=== PATIENT | female | born 1955 | race Caucasian/White ===

== ENCOUNTER → 2020-05-27 13:42 | Outpatient (BNVA) | payer MEDICARE, SELFPAY | PROVIDERS: PCP Internal Medicine; Referring Provider Internal Medicine; Visit Provider Hospitalist | DX: J45.909 Unspecified asthma, uncomplicated (principal); G47.33 Obstructive sleep apnea (adult) (pediatric); D80.2 Selective deficiency of immunoglobulin A [IgA]; Z85.72 Personal history of non-Hodgkin lymphomas; Z99.89 Dependence on other enabling machines and devices | CPT/HCPCS: 99212 ==

== ENCOUNTER → 2020-06-10 14:01 | Outpatient (BNVA) | payer MEDICARE, SELFPAY | PROVIDERS: PCP Internal Medicine; Visit Provider Hospitalist | DX: G47.33 Obstructive sleep apnea (adult) (pediatric) (principal); J45.909 Unspecified asthma, uncomplicated; D80.2 Selective deficiency of immunoglobulin A [IgA]; C85.90 Non-Hodgkin lymphoma, unspecified, unspecified site; Z99.89 Dependence on other enabling machines and devices | CPT/HCPCS: 99212 ==

== ENCOUNTER → 2020-07-23 12:47 | Outpatient (REF) | payer MEDICARE, SELFPAY | LOC: HO.SL 12:47 | PROVIDERS: Visit Provider Hospitalist | DX: G47.33 Obstructive sleep apnea (adult) (pediatric) (principal); Z99.89 Dependence on other enabling machines and devices | CPT/HCPCS: 95806 ==

== ENCOUNTER → 2020-08-08 14:20 | Outpatient (BNVA) | payer MEDICARE, SELFPAY | PROVIDERS: PCP Internal Medicine; Visit Provider Hospitalist | DX: J45.909 Unspecified asthma, uncomplicated (principal); D80.2 Selective deficiency of immunoglobulin A [IgA]; G47.33 Obstructive sleep apnea (adult) (pediatric); Z99.89 Dependence on other enabling machines and devices | CPT/HCPCS: 99212 ==

== ENCOUNTER → 2020-11-06 15:10 | Outpatient (BNVA) | payer MEDICARE, SELFPAY | PROVIDERS: PCP Internal Medicine; Visit Provider Hospitalist | DX: D80.2 Selective deficiency of immunoglobulin A [IgA] (principal); J45.40 Moderate persistent asthma, uncomplicated; G47.33 Obstructive sleep apnea (adult) (pediatric); Z99.89 Dependence on other enabling machines and devices | CPT/HCPCS: 99212 ==

== ENCOUNTER → 2021-04-27 13:49 | Outpatient (BNVA) | payer MEDICARE, SELFPAY | PROVIDERS: PCP Internal Medicine; Visit Provider Hospitalist | DX: J45.40 Moderate persistent asthma, uncomplicated (principal); G47.33 Obstructive sleep apnea (adult) (pediatric); D80.2 Selective deficiency of immunoglobulin A [IgA]; Z99.89 Dependence on other enabling machines and devices | CPT/HCPCS: 99212 ==

== ENCOUNTER → 2021-06-25 14:16 | Outpatient (BNVA) | payer MEDICARE, SELFPAY | PROVIDERS: PCP Internal Medicine; Visit Provider Hospitalist | DX: G47.33 Obstructive sleep apnea (adult) (pediatric) (principal); J45.40 Moderate persistent asthma, uncomplicated; D80.2 Selective deficiency of immunoglobulin A [IgA]; Z99.89 Dependence on other enabling machines and devices | CPT/HCPCS: 99212 ==

== ENCOUNTER → 2021-08-05 09:42 | Outpatient (REF) | payer MEDICARE, SELFPAY | LOC: HO.SL 09:42 | PROVIDERS: Visit Provider Hospitalist | DX: G47.33 Obstructive sleep apnea (adult) (pediatric) (principal); Z99.89 Dependence on other enabling machines and devices | CPT/HCPCS: 95810 ==

== ENCOUNTER → 2021-10-02 14:53 | Outpatient (BNVA) | payer MEDICARE, SELFPAY | PROVIDERS: PCP Internal Medicine; Visit Provider Hospitalist | DX: J45.40 Moderate persistent asthma, uncomplicated (principal); G47.33 Obstructive sleep apnea (adult) (pediatric); D80.2 Selective deficiency of immunoglobulin A [IgA]; Z79.899 Other long term (current) drug therapy; Z99.89 Dependence on other enabling machines and devices | CPT/HCPCS: 99212 ==

== ENCOUNTER → 2022-01-29 14:52 | Outpatient (BNVA) | payer OTHER, SELFPAY | PROVIDERS: PCP Internal Medicine; Visit Provider Hospitalist | DX: J45.40 Moderate persistent asthma, uncomplicated (principal); D80.2 Selective deficiency of immunoglobulin A [IgA]; G47.33 Obstructive sleep apnea (adult) (pediatric); Z99.89 Dependence on other enabling machines and devices | CPT/HCPCS: 99212 ==

== ENCOUNTER → 2022-08-02 15:34 | Outpatient (BNVA) | payer OTHER, SELFPAY | PROVIDERS: PCP Internal Medicine; Visit Provider Hospitalist | DX: J45.40 Moderate persistent asthma, uncomplicated (principal); D80.2 Selective deficiency of immunoglobulin A [IgA]; G47.33 Obstructive sleep apnea (adult) (pediatric); Z99.89 Dependence on other enabling machines and devices | CPT/HCPCS: 99212 ==

== ENCOUNTER → 2022-11-01 15:42 | Outpatient (BNVA) | payer OTHER, SELFPAY | PROVIDERS: PCP Internal Medicine; Visit Provider Hospitalist | DX: J45.40 Moderate persistent asthma, uncomplicated (principal); J40 Bronchitis, not specified as acute or chronic; G47.33 Obstructive sleep apnea (adult) (pediatric); D80.2 Selective deficiency of immunoglobulin A [IgA]; Z99.89 Dependence on other enabling machines and devices | CPT/HCPCS: 99212 ==

== ENCOUNTER → 2022-11-29 16:02 | Outpatient (REF) | payer OTHER, SELFPAY | LOC: HO.SL 16:02 | PROVIDERS: PCP Internal Medicine; Visit Provider Hospitalist | DX: G47.33 Obstructive sleep apnea (adult) (pediatric) (principal); Z99.89 Dependence on other enabling machines and devices | CPT/HCPCS: 95806 ==

== ENCOUNTER 2023-02-07 14:41 | Outpatient (AMB) | payer OTHER, SELFPAY ==
[2023-02-07 14:47] VITALS: PULSE 89; O2SAT 98; BMI 30.9
--- NOTE | 2023-02-07 14:47 | A.OFFVIS_ITS ---
Intake Vital Signs 02/07/23 14:47 Height 5 ft 1 in Weight 163 lb 5.8 oz BMI 30.9 Pulse 89 Pulse Source Pulse Oximeter Pulse Oximetry (%) 98 Oxygen Delivery Method Room Air Intake Visit Reasons: Asthma/SHAHLA Junior Accountant Required: No Allergies Penicillin Allergy (Severe, Uncoded 02/07/23 14:48) Dizziness HPI HPI Comments History of Present Illness Details The patient is a 67-year-old woman known history of lymphoma in remission in addition to pulmonary nodules, asthma and IgA deficiancy. She did follow-up with thoracic surgery at some point at [place] and underwent a wedge resection. The biopsy was consistent with hypersensitivity pneumonitis. Her hypersensitivity panel at the time was also abnormal. She was on respiratory inhalers and had been stable for some time. However then she stop taking the medication she was lost to follow-up. The patient started developing worsening shortness of breath and wheezing back in the winter of 2019. Positive sick contacts at home. She went to the [facility] ED where she had his flu swab and also a RSV swab that was negative. She was wondering if she could have the COVID-19 infection at the time. She had a lot of the similar symptoms. Now she has recovered she has been using Flovent Diskus inhaler with good effect. In addition to that the patient had a pulmonary nodule noted on the CAT scan February of 2019 and subsequently had a repeat CT scan of the chest in June 2019 demonstrating interval resolution of the left lower lobe nodular density which is reassuring and likely inflammatory. 08/02/2022 the patient is here for a pulmonary follow-up visit. The patient complains of some chest tightness. Lwyu-vo-pnlbbjqa severity. She has not been using her maintenance inhalers. Prior she had Breo and ran out. She does not have any more medication at home. she is having difficulty with the powder inhalers anyway. Therefore I will resend Symbicort which she had in the past and she tolerated. Hopefully is covered. If not will send a different inhaled HFA combination inhaler. The patient also if worsens can start prednisone. At this point she does not need it. She is also struggling with CPAP. The [employer] called interval going to take the machine away because she has not been using it. However, they have not done so. She would like to use it. She does not know had a set up her current mask and does not uncomfortable. I did have an N30 mask available that she can try. She understands that she needs to use her machine. If the machine is taking away and she needs to go back on CPAP she is going to have to get a repeat sleep study in order to activate her again. Meantime she can see about getting used to the new mask and continue using her machine. She is also complaining of other multiple complaints including headaches. She has needs to follow-up with primary care doctor about that. She is thinking about seeing a neurologist that she has seen in the past. 11/01/2022 the patient is here for pulmonary follow-up visit. She has been having increased episodes of chest congestion and bronchitis. She did take some doxycycline recently with some improvement. However she ran out and she needs another script. 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 In addition to that she continues with her Symbicort inhaler with her response. She also has a nebulizer that she can use. She also has a CPAP machine. Unfortunately she had a hard time tolerating the machine. Therefore now she needs to return. Will go ahead and repeat the sleep study in order for her to be reactivated in order for her to continue getting supplies. She continues to complain of daytime drowsiness with EPWORTH OF 04/03. 02/07/2023 the patient is here for pulmonary follow-up visit. Since we last spoke she became sick sometime in November with worsening bronchitis symptoms. She also complained of chest tightness. She struggled for some time. She uses her nebulizer several times a day. She was started on another course of antibiotics with only partial resolution of symptoms. Ultimately she follow-up with her oncologist where she had a CT scan of the chest. It was done at [facility]. I did request a copy. It appears that she has areas of nodular ground-glass opacities measuring between 8-10 mm in size. Also evidence of bronchiolitis. This appears to be new findings. In the meantime nose no evidence of any recurrence of her blood dyscrasia. The patient felt better but then started developing substernal chest discomfort. the patient did go to the ER to have that further evaluated. no significant findings noted on that evaluation. The patient was discharged in clinically her chest discomfort has been subsiding. Currently she does not have a. She also continues to have daytime drowsiness. She has been struggling with CPAP. The CPAP therapy does help her significantly. It is affecting beneficial. Although she still having hard time with a mask fitting. I did have an F 30 I mass available. I did provide her with 1 in order for her to continue using her CPAP. In the meantime her recent home sleep study was not effective demonstrating her underlying sleep apnea. She continues to have an elevated [place] score she does need to get activated with [employer]. Therefore, I will request a in-lab sleep study at this time. The patient will return after her in-lab sleep study and also will need a CT scan of the chest in 3 months to follow up with the nodular densities measuring 8-10 mm in size. [facility] Medical History (Updated 02/07/23 @ 16:35 by Jesse Guzmán MD) Asthma Bronchitis IgA deficiency Lymphoma SHAHLA on CPAP Pulmonary nodules Social History (Updated 04/27/21 @ 14:00 by SARA Mike) Patient Tobacco Use Status: Never used Tobacco Review of Systems Const Reports daytime sleepiness, Reports headache(s), Denies night sweats and Reports snoring ENT Denies change in voice, Reports dry mouth, Reports headache(s), Denies lip swelling, Denies mouth pain, Reports nasal congestion, Reports nasal discharge and Denies tongue swelling Card Reports chest pain and Reports dyspnea on exertion Resp Reports cough, Reports dyspnea on exertion, Reports snoring and Reports wheezing GI Denies abdominal pain Musc Denies no additional complaints Neuro Denies Neuro-related abnormal movements and Reports headache(s) Psych Denies no additional complaints Tucker/Lymph Denies easy bleeding and Denies lymphadenopathy Aller/Immun Denies lip swelling, Denies tongue swelling and Reports wheezing Physical Exam Vital Signs: Last Vital Signs Pulse 89 02/07/23 14:47 Pulse Ox 98 02/07/23 14:47 Oxygen Delivery Method Room Air 02/07/23 14:47 BMI result Body Mass Index 30.9 Const General: alert Neck Neck: Yes normal visual inspection, Yes full ROM and Yes no lymphadenopathy Chest Chest palpation & inspection: normal inspection of the chest Resp Auscultation: no wheezes and diminished lung sounds Cardio Rate: regular rate Rhythm: regular rhythm Heart sounds: S1 normal heart sound present, S2 normal heart sound present and Murmur heart sound present GI Palpation (GI): Soft to palpation and nontender Auscultation: normal bowel sounds Skin General skin exam: rashes and/or lesions noted Extrem General: Yes no clubbing, cyanosis or edema Assessment & Plan Assessment & Plan (1) Asthma: Code(s): J45.909 - Unspecified asthma, uncomplicated Qualifiers: Asthma complication type: uncomplicated Asthma persistence: persistent Asthma severity: moderate Qualified Code(s): J45.40 - Moderate persistent asthma, uncomplicated (2) IgA deficiency: Code(s): D80.2 - Selective deficiency of immunoglobulin A [IgA] (3) SHAHLA on CPAP: Code(s): G47.33 - Obstructive sleep apnea (adult) (pediatric); Z99.89 - Dependence on other enabling machines and devices (4) Bronchitis: Code(s): J40 - Bronchitis, not specified as acute or chronic (5) Pulmonary nodules: Code(s): R91.8 - Other nonspecific abnormal finding of lung field Plan repeat CT chest in 3 months in lab PSG (home sleep study was not effective) provided F30i small mask for her to use continue Symbicort start Azithromycin MWF short-acting beta agonist as needed F/U 3-4 months Orders: Orders RT PSG in-lab sleep study Today G47.33 - Obstructive sleep apnea (adult) (pediatric), Z99.89 - Dependence on other enabling machines and devices CT chest wo IV con 3 Months R91.8 - Other nonspecific abnormal finding of lung field Medications: New azithromycin Take 1 tablet on Tuesday/Tuesday/Tuesday 250 mg PO 3XW 28 days 12 tabs 6RF K21.9 - Gastro-esophageal reflux disease without esophagitis Coding Level of Care Code Est Pt Level 4 (29038) Diagnoses Asthma J45.40 Asthma complication type: uncomplicated Asthma persistence: persistent Asthma severity: moderate IgA deficiency D80.2 SHAHLA on CPAP G47.33; Z99.89 Bronchitis J40 Pulmonary nodules R91.8 Time Spent (min) 19
== END 2023-02-07 15:13 | disposition home or self-care (01) ==
PROVIDERS: PCP Internal Medicine; Visit Provider Hospitalist
DX: J45.40 Moderate persistent asthma, uncomplicated (principal); D80.2 Selective deficiency of immunoglobulin A [IgA]; G47.33 Obstructive sleep apnea (adult) (pediatric); Z99.89 Dependence on other enabling machines and devices; J40 Bronchitis, not specified as acute or chronic; R91.8 Other nonspecific abnormal finding of lung field
CPT/HCPCS: 99214

== ENCOUNTER → 2023-02-07 14:41 | Outpatient (BNVA) | payer OTHER, SELFPAY | PROVIDERS: Visit Provider Hospitalist | DX: J45.40 Moderate persistent asthma, uncomplicated (principal); J40 Bronchitis, not specified as acute or chronic; R91.8 Other nonspecific abnormal finding of lung field; D80.2 Selective deficiency of immunoglobulin A [IgA]; G47.33 Obstructive sleep apnea (adult) (pediatric); Z99.89 Dependence on other enabling machines and devices | CPT/HCPCS: 99212 ==

== ENCOUNTER → 2023-03-09 19:30 | Outpatient (REF) | payer OTHER, SELFPAY | LOC: HO.SL 19:30 | PROVIDERS: PCP Internal Medicine; Visit Provider Hospitalist | DX: G47.33 Obstructive sleep apnea (adult) (pediatric) (principal); Z99.89 Dependence on other enabling machines and devices | CPT/HCPCS: 95810 ==

== ENCOUNTER → 2023-03-09 22:04 | Outpatient (BNV) | payer OTHER, SELFPAY | PROVIDERS: PCP Internal Medicine; Visit Provider Psychiatry & Neurology Neurology | DX: G47.33 Obstructive sleep apnea (adult) (pediatric) (principal) | CPT/HCPCS: 95810 ==

== ENCOUNTER 2023-06-10 11:33 | Outpatient (AMB) | payer OTHER, SELFPAY ==
[2023-06-10 11:37] VITALS: BP 110/70; PULSE 86; O2SAT 98; BMI 28.3
--- NOTE | 2023-06-10 11:37 | A.OFFVIS_ITS ---
Intake Vital Signs 06/10/23 11:37 Height 5 ft 1 in Weight 150 lb BMI 28.3 BP 110/70 Blood Pressure Location Lt brachial Position Sitting Pulse 86 Pulse Source Pulse Oximeter Pulse Oximetry (%) 98 Oxygen Delivery Method Room Air Intake Visit Reasons: Asthma/SHAHLA Intake Note: pt is here for follow up and states her breathing is not good, and has a lot of issues going on Allergies Penicillin Allergy (Severe, Uncoded 06/10/23 11:40) Dizziness HPI HPI Comments History of Present Illness Details The patient is a 68-year-old woman known history of lymphoma in remission in addition to pulmonary nodules, asthma and IgA deficiancy. She did follow-up with thoracic surgery at some point at [facility] and underwent a wedge resection. The biopsy was consistent with hypersensitivity pneumonitis. Her hypersensitivity panel at the time was also abnormal. She was on respiratory inhalers and had been stable for some time. However then she stop taking the medication she was lost to follow-up. The patient started developing worsening shortness of breath and wheezing back in the winter of 2019. Positive sick contacts at home. She went to the [facility] ED where she had his flu swab and also a RSV swab that was negative. She was wondering if she could have the COVID-19 infection at the time. She had a lot of the similar symptoms. Now she has recovered she has been using Flovent Diskus inhaler with good effect. In addition to that the patient had a pulmonary nodule noted on the CAT scan February of 2019 and subsequently had a repeat CT scan of the chest in June 2019 d emonstrating interval resolution of the left lower lobe nodular density which is reassuring and likely inflammatory. 08/02/2022 the patient is here for a pulmonary follow-up visit. The patient complains of some chest tightness. [id number]-damaanql severity. She has not been using her maintenance inhalers. Prior she had Breo and ran out. She does not have any more medication at home. she is having difficulty with the powder inhalers anyway. Therefore I will resend Symbicort which she had in the past and she tolerated. Hopefully is covered. If not will send a different inhaled HFA combination inhaler. The patient also if worsens can start prednisone. At this point she does not need it. She is also struggling with CPAP. The [employer] called interval going to take the machine away because she has not been using it. However, they have not done so. She would like to use it. She does not know had a set up her current mask and does not uncomfortable. I did have an N30 mask available that she can try. She understands that she needs to use her machine. If the machine is taking away and she needs to go back on CPAP she is going to have to get a repeat sleep study in order to activate her again. Meantime she can see about getting used to the new mask and continue using her machine. She is also complaining of other multiple complaints including headaches. She has needs to follow-up with primary care doctor about that. She is thinking about seeing a neurologist that she has seen in the past. 11/01/2022 the patient is here for pulmonary follow-up visit. She has been having increased episodes of chest congestion and bronchitis. She did take some doxycycline recently with some improvement. However she ran out and she needs another script. 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 In addition to that she continues with her Symbicort inhaler with her response. She also has a nebulizer that she can use. She also has a CPAP machine. Unfortunately she had a hard time tolerating the machine. Therefore now she needs to return. Will go ahead and repeat the sleep study in order for her to be reactivated in order for her to continue getting supplies. She continues to complain of daytime drowsiness with EPWORTH OF 04/03. 02/07/2023 the patient is here for pulmonary follow-up visit. Since we last spoke she became sick sometime in November with worsening bronchitis symptoms. She also complained of chest tightness. She struggled for some time. She uses her nebulizer several times a day. She was started on another course of antibiotics with only partial resolution of symptoms. Ultimately she follow-up with her oncologist where she had a CT scan of the chest. It was done at [facility]. I did request a copy. It appears that she has areas of nodular ground-glass opacities measuring between 8-10 mm in size. Also evidence of bronchiolitis. This appears to be new findings. In the meantime nose no evidence of any recurrence of her blood dyscrasia. The patient felt better but then started developing substernal chest discomfort. the patient did go to the ER to have that further evaluated. no significant findings noted on that evaluation. The patient was discharged in clinically her chest discomfort has been subsiding. Currently she does not have a. She also continues to have daytime drowsiness. She has been struggling with CPAP. The CPAP therapy does help her significantly. It is affecting beneficial. Although she still having hard time with a mask fitting. I did have an F 30 I mass available. I did provide her with 1 in order for her to continue using her CPAP. In the meantime her recent home sleep study was not effective demonstrating her underlying sleep apnea. She continues to have an elevated [place] score she does need to get activated with [employer]. Therefore, I will request a in-lab sleep study at this time. The patient will return after her in-lab sleep study and also will need a CT scan of the chest in 3 months to follow up with the nodular densities measuring 8-10 mm in size. 06/10/2021 the patient is here for a pulmonary follow-up visit. She has been complaining of severe abdominal discomfort and is being evaluated for this at this time. From a respiratory status the patient continues use her medications with good effect. Denies any coughing or wheezing or chest tightness. She continues have significant daytime drowsiness. Her [place] score is elevated 10/24. She did undergo an in-lab study that we we did tommy reynoso. It appears that she does not have any evidence of sleep apnea this time and goes along with her home sleep study that demonstrated the same findings. Her major issue based on the studies is that she has fragmented sleep, waking up frequently during the night. Therefore, will start her on a sleep aid to try to help her with her sleep and see if we can provide better sleep hygiene. Will start the patient on gabapentin specially since he is having significant pain hopefully this also helps upsizing of the discomfort. We can also strides trazodone if she does not tolerate the gabapentin the goal will be to provide better quality sleep without the uses CPAP. If she continues to be symptomatic even after a sleep aid will can consider repeating a sleep study in future from a pulmonary nodule standpoint the patient did have imaging studies at [facility] will request the imaging at this time. [facility] Medical History (Updated 06/12/23 @ 20:30 by Jesse Guzmán MD) Insomnia Pulmonary nodules Bronchitis Lymphoma IgA deficiency Asthma SHAHLA on CPAP Social History Patient Tobacco Use Status: Never used Tobacco Review of Systems Const Reports daytime sleepiness, Reports headache(s), Denies night sweats and Reports snoring ENT Denies change in voice, Reports dry mouth, Reports headache(s), Denies lip swelling, Denies mouth pain, Reports nasal congestion, Reports nasal discharge and Denies tongue swelling Card Reports chest pain and Denies dyspnea on exertion Resp Reports cough, Denies dyspnea on exertion, Reports snoring and Denies wheezing GI Reports abdominal pain Musc Denies no additional complaints Neuro Denies Neuro-related abnormal movements and Reports headache(s) Psych Denies no additional complaints Tucker/Lymph Denies easy bleeding and Denies lymphadenopathy Aller/Immun Denies lip swelling, Denies tongue swelling and Denies wheezing Physical Exam Vital Signs: Last Vital Signs Pulse 86 06/10/23 11:37 BP 110/70 06/10/23 11:37 Pulse Ox 98 06/10/23 11:37 Oxygen Delivery Method Room Air 06/10/23 11:37 BMI result Body Mass Index 28.3 Const General: alert Neck Neck: Yes normal visual inspection, Yes full ROM and Yes no lymphadenopathy Chest Chest palpation & inspection: normal inspection of the chest Resp Auscultation: no wheezes and diminished lung sounds Cardio Rate: regular rate Rhythm: regular rhythm Heart sounds: S1 normal heart sound present, S2 normal heart sound present and Murmur heart sound present GI Palpation (GI): Soft to palpation and nontender Auscultation: normal bowel sounds Skin General skin exam: rashes and/or lesions noted Extrem General: Yes no clubbing, cyanosis or edema Assessment & Plan Assessment & Plan (1) Asthma: Code(s): J45.909 - Unspecified asthma, uncomplicated Qualifiers: Asthma severity: moderate Asthma persistence: persistent Asthma complication type: uncomplicated Qualified Code(s): J45.40 - Moderate persistent asthma, uncomplicated (2) IgA deficiency: Code(s): D80.2 - Selective deficiency of immunoglobulin A [IgA] (3) SHAHLA on CPAP: Comment: no sleep apnea on her recent in lab PSG Code(s): G47.33 - Obstructive sleep apnea (adult) (pediatric); Z99.89 - Dependence on other enabling machines and devices (4) Pulmonary nodules: Code(s): R91.8 - Other nonspecific abnormal finding of lung field (5) Insomnia: Code(s): G47.00 - Insomnia, unspecified Qualifiers: Insomnia type: primary Qualified Code(s): F51.01 - Primary insomnia Plan start Gabapentin 300mg QHS stop APAP therapy based on her recent sleep study continue Symbicort stopped Azithromycin MWF short-acting beta agonist as needed F/U 3-4 months Medications: New gabapentin 300 mg PO BEDTIME 30 days 30 caps 3RF Coding Level of Care Code Est Pt Level 4 (71841) Diagnoses Moderate persistent asthma without complication J45.40 Asthma severity: moderate Asthma persistence: persistent Asthma complication type: uncomplicated IgA deficiency D80.2 SHAHLA on CPAP G47.33; Z99.89 Pulmonary nodules R91.8 Primary insomnia F51.01 Insomnia type: primary Time Spent (min) 18
== END 2023-06-10 12:02 | disposition home or self-care (01) ==
PROVIDERS: PCP Internal Medicine; Visit Provider Hospitalist
DX: J45.40 Moderate persistent asthma, uncomplicated (principal); D80.2 Selective deficiency of immunoglobulin A [IgA]; G47.33 Obstructive sleep apnea (adult) (pediatric); Z99.89 Dependence on other enabling machines and devices; R91.8 Other nonspecific abnormal finding of lung field; F51.01 Primary insomnia
CPT/HCPCS: 99214

== ENCOUNTER → 2023-06-10 11:33 | Outpatient (BNVA) | payer OTHER, SELFPAY | PROVIDERS: PCP Internal Medicine; Visit Provider Hospitalist | DX: J45.40 Moderate persistent asthma, uncomplicated (principal); D80.2 Selective deficiency of immunoglobulin A [IgA]; G47.33 Obstructive sleep apnea (adult) (pediatric); R91.8 Other nonspecific abnormal finding of lung field; F51.01 Primary insomnia; Z99.89 Dependence on other enabling machines and devices | CPT/HCPCS: 99212 ==

== ENCOUNTER 2023-09-12 11:08 | Outpatient (AMB) | payer OTHER, SELFPAY ==
[2023-09-12 11:12] VITALS: BP 128/70; PULSE 86; O2SAT 97; BMI 28.2
--- NOTE | 2023-09-12 11:12 | A.OFFVIS_ITS ---
Intake Vital Signs 09/12/23 11:12 Height 5 ft 1 in Weight 149 lb BMI 28.2 BP 128/70 Blood Pressure Location Lt brachial Position Sitting Pulse 86 Pulse Source Pulse Oximeter Pulse Oximetry (%) 97 Oxygen Delivery Method Room Air Intake Visit Reasons: Asthma/SHAHLA Tucking Machine Operator Required: No Allergies Penicillin Allergy (Severe, Uncoded 09/12/23 11:14) Dizziness HPI HPI Comments History of Present Illness Details The patient is a 68-year-old woman known history of lymphoma in remission in addition to pulmonary nodules, asthma and IgA deficiancy. She did follow-up with thoracic surgery at some point at [facility] and underwent a wedge resection. The biopsy was consistent with hypersensitivity pneumonitis. Her hypersensitivity panel at the time was also abnormal. She was on respiratory inhalers and had been stable for some time. However then she stop taking the medication she was lost to follow-up. The patient started developing worsening shortness of breath and wheezing back in the winter of 2019. Positive sick contacts at home. She went to the [facility] ED where she had his flu swab and also a RSV swab that was negative. She was wondering if she could have the COVID-19 infection at the time. She had a lot of the similar symptoms. Now she has recovered she has been using Flovent Diskus inhaler with good effect. In addition to that the patient had a pulmonary nodule noted on the CAT scan February of 2019 and subsequently had a repeat CT scan of the chest in June 2019 demonstrating interval resolution of the left lower lobe nodular density which is reassuring and likely inflammatory. 08/02/2022 the patient is here for a pulmonary follow-up visit. The patient complains of some chest tightness. [id number] severity. She has not been using her maintenance inhalers. Prior she had Breo and ran out. She does not have any more medication at home. she is having difficulty with the powder inhalers anyway. Therefore I will resend Symbicort which she had in the past and she tolerated. Hopefully is covered. If not will send a different inhaled HFA combination inhaler. The patient also if worsens can start prednisone. At this point she does not need it. She is also struggling with CPAP. The [employer] company called interval going to take the machine away because she has not been using it. However, they have not done so. She would like to use it. She does not know had a set up her current mask and does not uncomfortable. I did have an N30 mask available that she can try. She understands that she needs to use her machine. If the machine is taking away and she needs to go back on CPAP she is going to have to get a repeat sleep study in order to activate her again. Meantime she can see about getting used to the new mask and continue using her machine. She is also complaining of other multiple complaints including headaches. She has needs to follow-up with primary care doctor about that. She is thinking about seeing a neurologist that she has seen in the past. 11/01/2022 the patient is here for pulmonary follow-up visit. She has been having increased episodes of chest congestion and bronchitis. She did take some doxycycline recently with some improvement. However she ran out and she needs another script. 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 In addition to that she continues with her Symbicort inhaler with her response. She also has a nebulizer that she can use. She also has a CPAP machine. Unfortunately she had a hard time tolerating the machine. Therefore now she needs to return. Will go ahead and repeat the sleep study in order for her to be reactivated in order for her to continue getting supplies. She continues to complain of daytime drowsiness with EPWORTH OF 04/03. 02/07/2023 the patient is here for pulmonary follow-up visit. Since we last spoke she became sick sometime in November with worsening bronchitis symptoms. She also complained of chest tightness. She struggled for some time. She uses her nebulizer several times a day. She was started on another course of antibiotics with only partial resolution of symptoms. Ultimately she follow-up with her oncologist where she had a CT scan of the chest. It was done at [facility]. I did request a copy. It appears that she has areas of nodular ground-glass opacities measuring between 8-10 mm in size. Also evidence of bronchiolitis. This appears to be new findings. In the meantime nose no evidence of any recurrence of her blood dyscrasia. The patient felt better but then started developing substernal chest discomfort. the patient did go to the ER to have that further evaluated. no significant findings noted on that evaluation. The patient was discharged in clinically her chest discomfort has been subsiding. Currently she does not have a. She also continues to have daytime drowsiness. She has been struggling with CPAP. The CPAP therapy does help her significantly. It is affecting beneficial. Although she still having hard time with a mask fitting. I did have an F 30 I mass available. I did provide her with 1 in order for her to continue using her CPAP. In the meantime her recent home sleep study was not effective demonstrating her underlying sleep apnea. She continues to have an elevated Avenue score she does need to get activated with [employer]. Therefore, I will request a in-lab sleep study at this time. The patient will return after her in-lab sleep study and also will need a CT scan of the chest in 3 months to follow up with the nodular densities measuring 8-10 mm in size. 06/10/2021 the patient is here for a pulmonary follow-up visit. She has been complaining of severe abdominal discomfort and is being evaluated for this at this time. From a respiratory status the patient continues use her medications with good effect. Denies any coughing or wheezing or chest tightness. She continues have significant daytime drowsiness. Her Avenue score is elevated 10/24. She did undergo an in-lab study that we we did review. It appears that she does not have any evidence of sleep apnea this time and goes along with her home sleep study that demonstrated the same findings. Her major issue based on the studies is that she has fragmented sleep, waking up frequently during the night. Therefore, will start her on a sleep aid to try to help her with her sleep and see if we can provide better sleep hygiene. Will start the patient on gabapentin specially since he is having significant pain hopefully this also helps upsizing of the discomfort. We can also strides trazodone if she does not tolerate the gabapentin the goal will be to provide better quality sleep without the uses CPAP. If she continues to be symptomatic even after a sleep aid will can consider repeating a sleep study in future from a pulmonary nodule standpoint the patient did have imaging studies at [facility] will request the imaging at this time. 09/12/2023 the patient is here for a pulmonary follow-up visit. About a month ago she was sick with a respiratory illness resulting significant asthma. She felt like her throat was closing and had a hard time breathing. She was pretty traumatized from the experience. Moderate severity. Her cough was so persistent that she started coughing up a little bit of blood. It was mixed in with sputum. Is now clear. The patient was not evaluated for condition did not take any prescription medications. She does continue to use Symbicort inhaler with good effect. She also has a rescue inhaler. At this point in view of her significant symptoms will provide her with a nebulizer. Will request 1 from a local [employer]. In addition to that will provide her with an Acapella valve in order to provide CPT any approve her mucus clearance. She does have IgA deficiency so therefore she is at risk for recurrent infections. I will increase her azithromycin to a higher dose. In the meantime she has been sleeping without the CPAP and she has been doing well. We did talk about positional therapy to minimize risk of sleep apnea. If her symptoms persist or worsen as far as daytime drowsiness she can always call we can request a repeat sleep study. [facility] Medical History (Updated 09/12/23 @ 11:24 by Jesse Guzmán MD) Chronic bronchitis with productive mucopurulent cough Insomnia Pulmonary nodules Bronchitis Lymphoma IgA deficiency Asthma SHAHLA on CPAP Social History Patient Tobacco Use Status: Never used Tobacco Review of Systems Const Denies daytime sleepiness, Reports headache(s), Denies night sweats and Reports snoring ENT Denies change in voice, Reports dry mouth, Reports headache(s), Denies lip swelling, Denies mouth pain, Reports nasal congestion, Reports nasal discharge and Denies tongue swelling Card Denies chest pain and Denies dyspnea on exertion Resp Reports chest congestion, Reports cough, Denies dyspnea on exertion, Reports snoring and Reports wheezing GI Reports abdominal pain Musc Denies no additional complaints Neuro Denies Neuro-related abnormal movements and Reports headache(s) Psych Denies no additional complaints Tucker/Lymph Denies easy bleeding and Denies lymphadenopathy Aller/Immun Denies lip swelling, Denies tongue swelling and Reports wheezing Physical Exam Vital Signs: Last Vital Signs Pulse 86 09/12/23 11:12 BP 128/70 09/12/23 11:12 Pulse Ox 97 09/12/23 11:12 Oxygen Delivery Method Room Air 09/12/23 11:12 BMI result Body Mass Index 28.2 Const General: alert Neck Neck: Yes normal visual inspection, Yes full ROM and Yes no lymphadenopathy Chest Chest palpation & inspection: normal inspection of the chest Resp Auscultation: wheezes and diminished lung sounds Cardio Rate: regular rate Rhythm: regular rhythm Heart sounds: S1 normal heart sound present, S2 normal heart sound present and Murmur heart sound present GI Palpation (GI): Soft to palpation and nontender Auscultation: normal bowel sounds Skin General skin exam: rashes and/or lesions noted Extrem General: Yes no clubbing, cyanosis or edema Assessment & Plan Assessment & Plan (1) Asthma: Code(s): J45.909 - Unspecified asthma, uncomplicated Qualifiers: Asthma complication type: uncomplicated Asthma persistence: persistent Asthma severity: moderate Qualified Code(s): J45.40 - Moderate persistent asthma, uncomplicated (2) IgA deficiency: Code(s): D80.2 - Selective deficiency of immunoglobulin A [IgA] (3) SHAHLA on CPAP: Comment: no sleep apnea on her recent in lab PSG Code(s): G47.33 - Obstructive sleep apnea (adult) (pediatric); Z99.89 - Dependence on other enabling machines and devices (4) Pulmonary nodules: Code(s): R91.8 - Other nonspecific abnormal finding of lung field (5) Insomnia: Code(s): G47.00 - Insomnia, unspecified Qualifiers: Insomnia type: primary Qualified Code(s): F51.01 - Primary insomnia Plan continue Gabapentin 300mg QHS stop APAP therapy based on her recent sleep study continue Symbicort restart Azithromycin 500mg MWF short-acting beta agonist as needed start nebulizer therapy for albuterol start acapella valve F/U 3-4 months Medications: New azithromycin 500 mg PO 3XW 28 days 12 tabs 4RF Changed From albuterol sulfate 2.5 mg (3 mL) inhalation Q6H 30 days PRN 180 mL 11RF shortness of breath or wheezing J41.1 - Mucopurulent chronic bronchitis To albuterol sulfate 2.5 mg (3 mL) inhalation BID 30 days 180 mL 11RF J41.1 - Mucopurulent chronic bronchitis Discontinued azithromycin Take 1 tablet on Tuesday/Tuesday/Tuesday Discontinued Reason: None 250 mg PO 3XW 28 days 12 tabs 6RF K21.9 - Gastro- esophageal reflux disease without esophagitis Coding Level of Care Code Est Pt Level 4 (91359) Diagnoses Moderate persistent asthma without complication J45.40 Asthma complication type: uncomplicated Asthma persistence: persistent Asthma severity: moderate IgA deficiency D80.2 SHAHLA on CPAP G47.33; Z99.89 Pulmonary nodules R91.8 Primary insomnia F51.01 Insomnia type: primary Time Spent (min) 17
== END 2023-09-12 11:37 | disposition home or self-care (01) ==
PROVIDERS: PCP Internal Medicine; Visit Provider Hospitalist
DX: J45.40 Moderate persistent asthma, uncomplicated (principal); D80.2 Selective deficiency of immunoglobulin A [IgA]; G47.33 Obstructive sleep apnea (adult) (pediatric); Z99.89 Dependence on other enabling machines and devices; R91.8 Other nonspecific abnormal finding of lung field; F51.01 Primary insomnia
CPT/HCPCS: 99214

== ENCOUNTER → 2023-09-12 11:08 | Outpatient (BNVA) | payer OTHER, SELFPAY | PROVIDERS: PCP Internal Medicine; Visit Provider Hospitalist | DX: J45.40 Moderate persistent asthma, uncomplicated (principal); G47.33 Obstructive sleep apnea (adult) (pediatric); Z99.89 Dependence on other enabling machines and devices; D80.2 Selective deficiency of immunoglobulin A [IgA]; R91.8 Other nonspecific abnormal finding of lung field; F51.01 Primary insomnia | CPT/HCPCS: 99212 ==

== ENCOUNTER 2024-06-14 09:25 | Outpatient (AMB) | payer OTHER, SELFPAY ==
[2024-06-14 09:32] VITALS: BP 132/74; PULSE 99; O2SAT 97; BMI 28.9
--- NOTE | 2024-06-14 09:32 | MHC.OFFVIS ---
Vital Signs 06/14/24 09:32 Height 5 ft 1 in Weight 153 lb 3.54 oz BMI 28.9 BP 132/74 Blood Pressure Location Rt brachial Position Sitting Pulse 99 Pulse Source Pulse Oximeter Pulse Oximetry (%) 97 Oxygen Delivery Method Room Air Intake Visit Reasons: asthma Allergies Penicillin Allergy (Severe, Uncoded 09/12/23 11:14) Dizziness HPI Comments Details: The patient is a 69-year-old woman known history of lymphoma in remission in addition to pulmonary nodules, asthma and IgA deficiancy. She did follow-up with thoracic surgery at some point at [facility] and underwent a wedge resection. The biopsy was consistent with hypersensitivity pneumonitis. Her hypersensitivity panel at the time was also abnormal. She was on respiratory inhalers and had been stable for some time. However then she stop taking the medication she was lost to follow-up. The patient started developing worsening shortness of breath and wheezing back in the winter of 2019. Positive sick contacts at home. She went to the [facility] ED where she had his flu swab and also a RSV swab that was negative. She was wondering if she could have the COVID-19 infection at the time. She had a lot of the similar symptoms. Now she has recovered she has been using Flovent Diskus inhaler with good effect. In addition to that the patient had a pulmonary nodule noted on the CAT scan February of 2019 and subsequently had a repeat CT scan of the chest in June 2019 demonstrating interval resolution of the left lower lobe nodular density which is reassuring and likely inflammatory. 08/02/2022 the patient is here for a pulmonary follow-up visit. The patient complains of some chest tightness. [id number] severity. She has not been using her maintenance inhalers. Prior she had Breo and ran out. She does not have any more medication at home. she is having difficulty with the powder inhalers anyway. Therefore I will resend Symbicort which she had in the past and she tolerated. Hopefully is covered. If not will send a different inhaled HFA combination inhaler. The patient also if worsens can start prednisone. At this point she does not need it. She is also struggling with CPAP. The [employer] called interval going to take the machine away because she has not been using it. However, they have not done so. She would like to use it. She does not know had a set up her current mask and does not uncomfortable. I did have an N30 mask available that she can try. She understands that she needs to use her machine. If the machine is taking away and she needs to go back on CPAP she is going to have to get a repeat sleep study in order to activate her again. Meantime she can see about getting used to the new mask and continue using her machine. She is also complaining of other multiple complaints including headaches. She has needs to follow-up with primary care doctor about that. She is thinking about seeing a neurologist that she has seen in the past. 11/01/2022 the patient is here for pulmonary follow-up visit. She has been having increased episodes of chest congestion and bronchitis. She did take some doxycycline recently with some improvement. However she ran out and she needs another script. 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 In addition to that she continues with her Symbicort inhaler with her response. She also has a nebulizer that she can use. She also has a CPAP machine. Unfortunately she had a hard time tolerating the machine. Therefore now she needs to return. Will go ahead and repeat the sleep study in order for her to be reactivated in order for her to continue getting supplies. She continues to complain of daytime drowsiness with EPWORTH OF 04/03. 02/07/2023 the patient is here for pulmonary follow-up visit. Since we last spoke she became sick sometime in November with worsening bronchitis symptoms. She also complained of chest tightness. She struggled for some time. She uses her nebulizer several times a day. She was started on another course of antibiotics with only partial resolution of symptoms. Ultimately she follow-up with her oncologist where she had a CT scan of the chest. It was done at [facility]. I did request a copy. It appears that she has areas of nodular ground-glass opacities measuring between 8-10 mm in size. Also evidence of bronchiolitis. This appears to be new findings. In the meantime nose no evidence of any recurrence of her blood dyscrasia. The patient felt better but then started developing substernal chest discomfort. the patient did go to the ER to have that further evaluated. no significant findings noted on that evaluation. The patient was discharged in clinically her chest discomfort has been subsiding. Currently she does not have a. She also continues to have daytime drowsiness. She has been struggling with CPAP. The CPAP therapy does help her significantly. It is affecting beneficial. Although she still having hard time with a mask fitting. I did have an F 30 I mass available. I did provide her with 1 in order for her to continue using her CPAP. In the meantime her recent home sleep study was not effective demonstrating her underlying sleep apnea. She continues to have an elevated Mendon score she does need to get activated with [employer]. Therefore, I will request a in-lab sleep study at this time. The patient will return after her in-lab sleep study and also will need a CT scan of the chest in 3 months to follow up with the nodular densities measuring 8-10 mm in size. 06/10/2021 the patient is here for a pulmonary follow-up visit. She has been complaining of severe abdominal discomfort and is being evaluated for this at this time. From a respiratory status the patient continues use her medications with good effect. Denies any coughing or wheezing or chest tightness. She continues have significant daytime drowsiness. Her Mendon score is elevated 10/24. She did undergo an in-lab study that we we did review. It appears that she does not have any evidence of sleep apnea this time and goes along with her home sleep study that demonstrated the same findings. Her major issue based on the studies is that she has fragmented sleep, waking up frequently during the night. Therefore, will start her on a sleep aid to try to help her with her sleep and see if we can provide better sleep hygiene. Will start the patient on gabapentin specially since he is having significant pain hopefully this also helps upsizing of the discomfort. We can also strides trazodone if she does not tolerate the gabapentin the goal will be to provide better quality sleep without the uses CPAP. If she continues to be symptomatic even after a sleep aid will can consider repeating a sleep study in future from a pulmonary nodule standpoint the patient did have imaging studies at [facility] will request the imaging at this time. 09/12/2023 the patient is here for a pulmonary follow-up visit. About a month ago she was sick with a respiratory illness resulting significant asthma. She felt like her throat was closing and had a hard time breathing. She was pretty traumatized from the experience. Moderate severity. Her cough was so persistent that she started coughing up a little bit of blood. It was mixed in with sputum. Is now clear. The patient was not evaluated for condition did not take any prescription medications. She does continue to use Symbicort inhaler with good effect. She also has a rescue inhaler. At this point in view of her significant symptoms will provide her with a nebulizer. Will request 1 from a local [email or web address]. In addition to that will provide her with an Acapella valve in order to provide CPT any approve her mucus clearance. She does have IgA deficiency so therefore she is at risk for recurrent infections. I will increase her azithromycin to a higher dose. In the meantime she has been sleeping without the CPAP and she has been doing well. We did talk about positional therapy to minimize risk of sleep apnea. If her symptoms persist or worsen as far as daytime drowsiness she can always call we can request a repeat sleep study. 06/14/2024 the patient is here for pulmonary follow-up visit. Since we last spoke she did go to the ED at [place]. She did have imaging studies and blood work but then she could not stay because the wait so long. Therefore she went home. Starting to feel better that she has has significant sinus pressure and postnasal drip. She also has a fullness sensation in the back of her throat. Sometimes she hurt herself trying to clear her throat. Will go ahead and have her get sinus x-rays to see. The patient will also undergo a CT scan of the chest that she is typically has with her oncologist. And she knows send me a copy of that. In the meantime because of her IgA deficiency will start her on pleural Exidine mouthwashes. She also uses a azithromycin prophylactically. Will have her see ENT for laryngoscopy. FOR[facility]LY [facility], [facility] Medical History (Updated 06/14/24 @ 20:28 by Jesse Guzmán MD) Chronic bronchitis with productive mucopurulent cough Insomnia Pulmonary nodules Bronchitis Lymphoma IgA deficiency Asthma SHAHLA on CPAP Social History Patient Tobacco Use Status: Never used Tobacco Review of Systems Const Denies daytime sleepiness, Reports headache(s), Denies night sweats and Reports snoring ENT Denies change in voice, Reports dry mouth, Reports headache(s), Denies lip swelling, Denies mouth pain, Reports nasal congestion, Reports nasal discharge, Reports sore throat and Denies tongue swelling Card Denies chest pain and Denies dyspnea on exertion Resp Reports chest congestion, Reports cough, Denies dyspnea on exertion, Reports snoring and Reports wheezing GI Reports abdominal pain Musc Denies no additional complaints Neuro Denies Neuro-related abnormal movements and Reports headache(s) Psych Denies no additional complaints Tucker/Lymph Denies easy bleeding and Denies lymphadenopathy Aller/Immun Denies lip swelling, Denies tongue swelling and Reports wheezing Physical Exam Vital Signs: Last Vital Signs Pulse 99 06/14/24 09:32 BP 132/74 06/14/24 09:32 Pulse Ox 97 06/14/24 09:32 Oxygen Delivery Method Room Air 06/14/24 09:32 BMI result Body Mass Index 28.9 Const General: alert Neck Neck: Yes normal visual inspection, Yes full ROM and Yes no lymphadenopathy Chest Chest palpation & inspection: normal inspection of the chest Resp Auscultation: no wheezes and diminished lung sounds Cardio Rate: regular rate Rhythm: regular rhythm Heart sounds: S1 normal heart sound present, S2 normal heart sound present and Murmur heart sound present GI Palpation (GI): Soft to palpation and nontender Auscultation: normal bowel sounds Skin General skin exam: rashes and/or lesions noted Extrem General: Yes no clubbing, cyanosis or edema Assessment & Plan Assessment & Plan (1) Asthma: Code(s): J45.909 - Unspecified asthma, uncomplicated Category: Medical Qualifiers: Asthma complication type: uncomplicated Asthma persistence: persistent Asthma severity: moderate Qualified Code(s): J45.40 - Moderate persistent asthma, uncomplicated (2) IgA deficiency: Code(s): D80.2 - Selective deficiency of immunoglobulin A [IgA] Category: Medical (3) SHAHLA on CPAP: Comment: no sleep apnea on her recent in lab PSG Code(s): G47.33 - Obstructive sleep apnea (adult) (pediatric); Z99.89 - Dependence on other enabling machines and devices Category: Medical (4) Pulmonary nodules: Code(s): R91.8 - Other nonspecific abnormal finding of lung field Category: Medical (5) Insomnia: Code(s): G47.00 - Insomnia, unspecified Category: Medical Qualifiers: Insomnia type: primary Qualified Code(s): F51.01 - Primary insomnia (6) Chronic bronchitis with productive mucopurulent cough: Code(s): J41.1 - Mucopurulent chronic bronchitis Category: Medical (7) Sinusitis: Code(s): J32.9 - Chronic sinusitis, unspecified Category: Medical Qualifiers: Sinusitis location: unspecified location Chronicity: chronic Qualified Code(s): J32.9 - Chronic sinusitis, unspecified Plan continue Gabapentin 300mg QHS stop APAP therapy based on her recent sleep study continue Symbicort Azithromycin 500mg MWF short-acting beta agonist as needed nebulizer therapy for albuterol acapella valve sinus xray Chlorhexadine MW x 14 days ENT eval for laryngoscopy F/U 3-4 months Orders: Orders XR sinus min 3V Today J32.9 - Chronic sinusitis, unspecified Referrals Ear/Nose/Throat Referral D80.2 - Selective deficiency of immunoglobulin A [IgA], J32.9 - Chronic sinusitis, unspecified Medications: New chlorhexidine gluconate 0.12% 15 mL buccal BID 450 mL 5RF 15 days biotin 5 mg PO DAILY 30 caps 11RF 30 days Coding Level of Care Code Est Pt Level 4 (59443) Complex EM visit Add On G2211 Diagnoses Moderate persistent asthma without complication J45.40 Asthma complication type: uncomplicated Asthma persistence: persistent Asthma severity: moderate IgA deficiency D80.2 SHAHLA on CPAP G47.33; Z99.89 Pulmonary nodules R91.8 Primary insomnia F51.01 Insomnia type: primary Chronic bronchitis with productive mucopurulent cough J41.1 Chronic sinusitis, unspecified location J32.9 Sinusitis location: unspecified location Chronicity: chronic Time Spent (min) 17
== END 2024-06-14 09:57 | disposition home or self-care (01) ==
PROVIDERS: PCP Internal Medicine; Visit Provider Hospitalist
DX: J45.40 Moderate persistent asthma, uncomplicated (principal); D80.2 Selective deficiency of immunoglobulin A [IgA]; G47.33 Obstructive sleep apnea (adult) (pediatric); Z99.89 Dependence on other enabling machines and devices; R91.8 Other nonspecific abnormal finding of lung field; F51.01 Primary insomnia; J41.1 Mucopurulent chronic bronchitis; J32.9 Chronic sinusitis, unspecified
CPT/HCPCS: 99214; G2211

== ENCOUNTER → 2024-06-14 09:25 | Outpatient (BNVA) | payer OTHER, SELFPAY | PROVIDERS: PCP Internal Medicine; Visit Provider Hospitalist | DX: J41.1 Mucopurulent chronic bronchitis (principal); J32.9 Chronic sinusitis, unspecified; J45.40 Moderate persistent asthma, uncomplicated; R91.8 Other nonspecific abnormal finding of lung field; D80.2 Selective deficiency of immunoglobulin A [IgA]; G47.33 Obstructive sleep apnea (adult) (pediatric); F51.01 Primary insomnia; Z99.89 Dependence on other enabling machines and devices | CPT/HCPCS: 99212 ==

== ENCOUNTER 2025-02-18 09:03 | Outpatient (AMB) | payer OTHER, SELFPAY ==
--- OUTSIDE RECORDS SUMMARY | 2024-04-16 10:52 | XMS_ITS | Encounter Summary ---
Author Organization [facility] Address [address] [place] [address] Care Team Providers Care Ob Tech Name Role Phone Roosevelt Jacobs MD Primary Care Provider [phone] Encounter Details Date Type Department Care Team (Late st Contact Info) Description 04/16/2024 10:52 AM EDT Hospital Encounter TH HISTORIC ENCOUNTERS EASTERN CONVERSION ONLY Cristi Campbell MD [address] [place] [phone] Social History Tobacco Use Types Packs/Day Years [...] Care Team (Late st Contact Info) Description 02/21/2025 11:15 AM EDT Office Visit [facility] Hematology Oncology [address] [place] [phone] Cristi Campbell MD [address] [place] [phone] documented as of this encounter Visit Diagnoses Not on filedocumented in this encounter Care Teams Ob Tech Relationship Specialty Start Date End Date Roosevelt Jacobs MD [address] [place] [phone] PCP - General Internal Medicine 08/15/20 documented as of this encounter
[2025-02-18 09:06] VITALS: BP 130/70; PULSE 87; O2SAT 98; BMI 28.5
--- NOTE | 2025-02-18 09:06 | A.OFFVIS_ITS ---
Vital Signs 02/18/25 09:06 Height 5 ft 1 in Weight 151 lb 0.266 oz BMI 28.5 BP 130/70 Blood Pressure Location Lt brachial Position Sitting Pulse 87 Pulse Source Pulse Oximeter Pulse Oximetry (%) 98 Oxygen Delivery Method Room Air Intake Visit Reasons: Asthma Allergies Penicillin Allergy (Severe, Uncoded 09/12/23 11:14) Dizziness HPI Comments Details: The patient is a 70-year-old woman known history of lymphoma in remission in addition to pulmonary nodules, asthma and IgA deficiancy. She did follow-up with thoracic surgery at some point at [facility] and underwent a wedge resection. The biopsy was consistent with hypersensitivity pneumonitis. Her hypersensitivity panel at the time was also abnormal. She was on respiratory inhalers and had been stable for some time. However then she stop taking the medication she was lost to follow-up. The patient started developing worsening shortness of breath and wheezing back in the winter of 2019. Positive sick contacts at home. She went to the [facility] ED where she had his flu swab and also a RSV swab that was negative. She was wondering if she could have the COVID-19 infection at the time. She had a lot of the similar symptoms. Now she has recovered she has been using Flovent Diskus inhaler with good effect. In addition to that the patient had a pulmonary nodule noted on the CAT scan February of 2019 and subsequently had a repeat CT scan of the chest in June 2019 demonstrating interval resolution of the left lower lobe nodular density which is reassuring and likely inflammatory. 08/02/2022 the patient is here for a pulmonary follow-up visit. The patient complains of some chest tightness. [id number] severity. She has not been using her maintenance inhalers. Prior she had Breo and ran out. She does not have any more medication at home. she is having difficulty with the powder inhalers anyway. Therefore I will resend Symbicort which she had in the past and she tolerated. Hopefully is covered. If not will send a different inhaled HFA combination inhaler. The patient also if worsens can start prednisone. At this point she does not need it. She is also struggling with CPAP. The [employer] company called interval going to take the machine away because she has not been using it. However, they have not done so. She would like to use it. She does not know had a set up her current mask and does not uncomfortable. I did have an N30 mask available that she can try. She understands that she needs to use her machine. If the machine is taking away and she needs to go back on CPAP she is going to have to get a repeat sleep study in order to activate her again. Meantime she can see about getting used to the new mask and continue using her machine. She is also complaining of other multiple complaints including headaches. She has needs to follow-up with primary care doctor about that. She is thinking about seeing a neurologist that she has seen in the past. 11/01/2022 the patient is here for pulmonary follow-up visit. She has been having increased episodes of chest congestion and bronchitis. She did take some doxycycline recently with some improvement. However she ran out and she needs another script. 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 In addition to that she continues with her Symbicort inhaler with her response. She also has a nebulizer that she can use. She also has a CPAP machine. Unfortunately she had a hard time tolerating the machine. Therefore now she needs to return. Will go ahead and repeat the sleep study in order for her to be reactivated in order for her to continue getting supplies. She continues to complain of daytime drowsiness with EPWORTH OF 04/03. 02/07/2023 the patient is here for pulmonary follow-up visit. Since we last spoke she became sick sometime in November with worsening bronchitis symptoms. She also complained of chest tightness. She struggled for some time. She uses her nebulizer several times a day. She was started on another course of antibiotics with only partial resolution of symptoms. Ultimately she follow-up with her oncologist where she had a CT scan of the chest. It was done at [facility]. I did request a copy. It appears that she has areas of nodular ground-glass opacities measuring between 8-10 mm in size. Also evidence of bronchiolitis. This appears to be new findings. In the meantime nose no evidence of any recurrence of her blood dyscrasia. The patient felt better but then started developing substernal chest discomfort. the patient did go to the ER to have that further evaluated. no significant findings noted on that evaluation. The patient was discharged in clinically her chest discomfort has been subsiding. Currently she does not have a. She also continues to have daytime drowsiness. She has been struggling with CPAP. The CPAP therapy does help her significantly. It is affecting beneficial. Although she still having hard time with a mask fitting. I did have an F 30 I mass available. I did provide her with 1 in order for her to continue using her CPAP. In the meantime her recent home sleep study was not effective demonstrating her underlying sleep apnea. She continues to have an elevated Corrigan score she does need to get activated with [employer]. Therefore, I will request a in-lab sleep study at this time. The patient will return after her in-lab sleep study and also will need a CT scan of the chest in 3 months to follow up with the nodular densities measuring 8-10 mm in size. 06/10/2021 the patient is here for a pulmonary follow-up visit. She has been complaining of severe abdominal discomfort and is being evaluated for this at this time. From a respiratory status the patient continues use her medications with good effect. Denies any coughing or wheezing or chest tightness. She continues have significant daytime drowsiness. Her Corrigan score is elevated 10/24. She did undergo an in-lab study that we we did review. It appears that she does not have any evidence of sleep apnea this time and goes along with her home sleep study that demonstrated the same findings. Her major issue based on the studies is that she has fragmented sleep, waking up frequently during the night. Therefore, will start her on a sleep aid to try to help her with her sleep and see if we can provide better sleep hygiene. Will start the patient on gabapentin specially since he is having significant pain hopefully this also helps upsizing of the discomfort. We can also strides trazodone if she does not tolerate the gabapentin the goal will be to provide better quality sleep without the uses CPAP. If she continues to be symptomatic even after a sleep aid will can consider repeating a sleep study in future from a pulmonary nodule standpoint the patient did have imaging studies at [facility] will request the imaging at this time. 09/12/2023 the patient is here for a pulmonary follow-up visit. About a month ago she was sick with a respiratory illness resulting significant asthma. She felt like her throat was closing and had a hard time breathing. She was pretty traumatized from the experience. Moderate severity. Her cough was so persistent that she started coughing up a little bit of blood. It was mixed in with sputum. Is now clear. The patient was not evaluated for condition did not take any prescription medications. She does continue to use Symbicort inhaler with good effect. She also has a rescue inhaler. At this point in view of her significant symptoms will provide her with a nebulizer. Will request 1 from a local [employer]. In addition to that will provide her with an Acapella valve in order to provide CPT any approve her mucus clearance. She does have IgA deficiency so therefore she is at risk for recurrent infections. I will increase her azithromycin to a higher dose. In the meantime she has been sleeping without the CPAP and she has been doing well. We did talk about positional therapy to minimize risk of sleep apnea. If her symptoms persist or worsen as far as daytime drowsiness she can always call we can request a repeat sleep study. 06/14/2024 the patient is here for pulmonary follow-up visit. Since we last spoke she did go to the ED at [place]. She did have imaging studies and blood work but then she could not stay because the wait so long. Therefore she went home. Starting to feel better that she has has significant sinus pressure and postnasal drip. She also has a fullness sensation in the back of her throat. Sometimes she hurt herself trying to clear her throat. Will go ahead and have her get sinus x-rays to see. The patient will also undergo a CT scan of the chest that she is typically has with her oncologist. And she knows send me a copy of that. In the meantime because of her IgA deficiency will start her on pleural Exidine mouthwashes. She also uses a azithromycin prophylactically. Will have her see ENT for laryngoscopy. 02/18/2025 the patient is here for a pulmonary follow-up visit. Overall the patient has been doing okay. About a month ago or so she did have a bad respiratory infection. She did require antibiotics. She did not use any prednisone. The patient had been using her nebulizer regularly. She is doing better. She did not have an x-ray. Although back in June [address] scan of the chest as part of the cancer follow-up. Her CAT scan was reassuring just was postoperative changes and no recurrence. She had been on the azithromycin for prophylactic antibiotic use for IgA deficiency. But at this point she is doing better and she is off it right now. If she starts developing any respiratory complaints congestion she should restarted to avoid serious infections. She continues to have sinus pressure and cough. She will be seeing ENT next month for laryngoscopy. She will continue to keep that appointment. [facility] Medical History (Updated 06/14/24 @ 20:28 by Jesse Guzmán MD) Chronic bronchitis with productive mucopurulent cough Insomnia Pulmonary nodules Bronchitis Lymphoma IgA deficiency Asthma SHAHLA on CPAP Social History Patient Tobacco Use Status: Never used Tobacco Review of Systems Const Denies daytime sleepiness, Reports headache(s), Denies night sweats and Reports snoring ENT Denies change in voice, Reports dry mouth, Reports headache(s), Denies lip swelling, Denies mouth pain, Reports nasal congestion, Reports nasal discharge, Reports sore throat and Denies tongue swelling Card Denies chest pain and Denies dyspnea on exertion Resp Denies chest congestion, Reports cough, Denies dyspnea on exertion, Reports snoring and Denies wheezing GI Denies abdominal pain Musc Denies no additional complaints Neuro Denies Neuro-related abnormal movements and Reports headache(s) Psych Denies no additional complaints Tucker/Lymph Denies easy bleeding and Denies lymphadenopathy Aller/Immun Denies lip swelling, Denies tongue swelling and Denies wheezing Physical Exam Vital Signs: Last Vital Signs Pulse 87 02/18/25 09:06 BP 130/70 02/18/25 09:06 Pulse Ox 98 02/18/25 09:06 Oxygen Delivery Method Room Air 02/18/25 09:06 BMI result Body Mass Index 28.5 Const General: alert Neck Neck: Yes normal visual inspection, Yes full ROM and Yes no lymphadenopathy Chest Chest palpation & inspection: normal inspection of the chest Resp Auscultation: no wheezes and diminished lung sounds Cardio Rate: regular rate Rhythm: regular rhythm Heart sounds: S1 normal heart sound present, S2 normal heart sound present and Murmur heart sound present GI Palpation (GI): Soft to palpation and nontender Auscultation: normal bowel sounds Skin General skin exam: rashes and/or lesions noted Extrem General: Yes no clubbing, cyanosis or edema Assessment & Plan Assessment & Plan (1) Asthma: Code(s): J45.909 - Unspecified asthma, uncomplicated Category: Medical Qualifiers: Asthma complication type: uncomplicated Asthma persistence: persistent Asthma severity: moderate Qualified Code(s): J45.40 - Moderate persistent asthma, uncomplicated (2) IgA deficiency: Code(s): D80.2 - Selective deficiency of immunoglobulin A [IgA] Category: Medical (3) SHAHLA on CPAP: Comment: no sleep apnea on her recent in lab PSG Code(s): G47.33 - Obstructive sleep apnea (adult) (pediatric); Z99.89 - Dependence on other enabling machines and devices Category: Medical (4) Pulmonary nodules: Code(s): R91.8 - Other nonspecific abnormal finding of lung field Category: Medical (5) Insomnia: Code(s): G47.00 - Insomnia, unspecified Category: Medical Qualifiers: Insomnia type: primary Qualified Code(s): F51.01 - Primary insomnia (6) Chronic bronchitis with productive mucopurulent cough: Code(s): J41.1 - Mucopurulent chronic bronchitis Category: Medical (7) Sinusitis: Code(s): J32.9 - Chronic sinusitis, unspecified Category: Medical Qualifiers: Chronicity: chronic Sinusitis location: unspecified location Qualified Code(s): J32.9 - Chronic sinusitis, unspecified Plan continue Gabapentin 300mg QHS continue Symbicort short-acting beta agonist as needed nebulizer therapy for albuterol acapella valve ENT F/U 3-4 months Coding Level of Care Code Est Pt Level 4 (11852) Complex EM visit Add On G2211 Diagnoses Moderate persistent asthma without complication J45.40 Asthma complication type: uncomplicated Asthma persistence: persistent Asthma severity: moderate IgA deficiency D80.2 SHAHLA on CPAP G47.33; Z99.89 Pulmonary nodules R91.8 Primary insomnia F51.01 Insomnia type: primary Chronic bronchitis with productive mucopurulent cough J41.1 Chronic sinusitis, unspecified location J32.9 Chronicity: chronic Sinusitis location: unspecified location Time Spent (min) 17
--- OUTSIDE RECORDS SUMMARY | 2025-02-18 09:31 | XMS_ITS | Clinical Summary ---
Author Organization [facility] Address [address] [place] [address] Care Team Providers Care Transfusion Aide Name Role Phone Roosevelt Jacobs MD Primary Care Provider [phone] Allergies Active Allergy Reactions Criticality Noted Date Comments Penicillins 06/07/2018 Medications Medication Sig Dispensed Refills Start Date End Date Status clonazePAM (KlonoPIN) 1 MG tablet Take 1 tablet (1 mg total) by mouth 2 (two) times a day as needed for anxiety. 0 Active beclomethasone (QVAR) 80 MCG/ACT inhaler Inhale 1 puff into the lungs 2 (two) times a day. 0 Active naproxen (NAPROSYN) 500 MG tablet Take 1 tablet (500 mg total) by mouth 2 (two) times a day with meals. 0 Active cyclobenzaprine (FLEXERIL) 10 MG tablet Take 1 tablet (10 mg total) by mouth 3 (three) times a day as needed for muscle spasms. 0 Active iron polysaccharides (NIFEREX) 150 MG capsule Take 1 capsule (150 mg total) by mouth 2 (two) times a day. 0 Active Multiple Vitamin (MULTIVITAMIN+ PO) Take by mouth daily. 0 Active promethazine (PHENERGAN) tablet 25 mg Take 1 tablet (25 mg total) by mouth every 6 (six) hours as needed for nausea. 0 Active docusate sodium (COLACE) 100 MG capsule Take 1 capsule (100 mg total) by mouth 2 (two) times a day. 0 Active ergocalciferol (VITAMIN D2) capsule 50769 units Take 1 capsule (50,000 Units total) by mouth once a week. 0 Active Ferrous Fumarate 325 (106 Fe) MG TABS Take by mouth. 0 Acti ve traMADol (ULTRAM) 50 MG tablet Take 50 mg by mouth every 6 (six) hours as needed for pain. 0 Active mometasone-formoterol (DULERA) 200-5 MCG/ACT inhaler 2 inhalations by Inhaled route every 12 (twelve) hours. 0 Active atorvastatin (LIPITOR) tablet 10 mg Take 1 tablet (10 mg total) by mouth every evening. 0 Active metFORMIN (GLUCOPHAGE) tablet 500 mg Take 1 tablet (500 mg total) by mouth 2 (two) times a day with meals. 0 Active doxycycline (VIBRAMYCIN) 100 MG capsule Take 1 capsule (100 mg total) by mouth 2 (two) times a day. 20 capsule 0 12/30/2022 Active Additional Information Patient not taking.Reported on 04/16/2024 rosuvastatin (CRESTOR) tablet 5 mg Take 1 tablet (5 mg total) by mouth daily. 0 Active omeprazole (PriLOSEC) 20 MG capsule Take 1 capsule (20 mg total) by mouth daily. 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 Social History Tobacco Use Types Packs/Day Years Used Date Smoking Tobacco: Never Smokeless Tobacco: Never Alcohol Use Standard Drinks/Week Comments No 0 (1 standard drink = 0.6 oz pur e alcohol) Sex and Gender Information Value Date Recorded Sex Assigned at Not on file Gender Identity Not on file Sexual Orientation Not on file Job Start Date Occupation Industry Not on file Not on file Not on file Last Filed Vital Signs Vital Sign Reading Time Taken Comments Blood Pressure 120/54 04/16/2024 11:09 AM EDT Pulse 72 04/16/2024 11:09 AM EDT Temperature 36.1 C (97 F) 04/16/2024 11:09 AM EDT Respiratory Rate - - Oxygen Saturation 100% 04/16/2024 11:09 AM EDT Inhaled Oxygen Concentration - - Weight 68.5 kg (151 lb) 04/16/2024 11:09 AM EDT Height 152.4 cm (5') 04/16/2024 11:09 AM EDT Body Mass Index 29.49 04/16/2024 11:09 AM EDT Plan of Treatment Health Maintenance Due Date Last Done Comments Hepatitis C Screening 1955 Depression Screening 1967 Preventative Health Evaluation 1973 Shingrix-Zoster Vaccine (1 of 2) 1974 Colon Cancer Screening (Colonoscopy) 02/14/2000 Breast Cancer Screening (Mammogram) 2005 Pneumococcal Vaccine (2 of 2 - PCV) 01/11/2015 01/11/2014 RSV Adult > 60+ Yrs or (1 - Risk 60-74 years 1-dose series) 2015 Fall Risk Assessment 02/14/2020 Osteoporosis Screening (DEXA Scan) 02/14/2020 COVID-19 Vaccine ( season) 2024 05/22/2021, 10/10/2020, 09/19/2020 DTap / Tdap / Td (2 - Td or Tdap) 11/19/2024 11/19/2014 Influenza Vaccine (#1) 2025 3, 06/24/2022, 05/22/2021, Additional history exists Hepatitis B Vaccines Aged Out No long er eligible based on patient's age to complete this topic RSV Ped < 20 months Aged Out No longe r eligible based on patient's age to complete this topic Care Teams Transfusion Aide Relationship Specialty Start Date End Date Roosevelt Jacobs MD [address] [place] [phone] PCP - General Internal Medicine 04/16/21
== END 2025-02-18 09:28 | disposition home or self-care (01) ==
LOC: HO.HPS 09:04
PROVIDERS: PCP Internal Medicine; Visit Provider Hospitalist
DX: J45.40 Moderate persistent asthma, uncomplicated (principal); D80.2 Selective deficiency of immunoglobulin A [IgA]; G47.33 Obstructive sleep apnea (adult) (pediatric); Z99.89 Dependence on other enabling machines and devices; R91.8 Other nonspecific abnormal finding of lung field; F51.01 Primary insomnia; J41.1 Mucopurulent chronic bronchitis; J32.9 Chronic sinusitis, unspecified
CPT/HCPCS: 99214; G2211

== ENCOUNTER → 2025-02-18 09:03 | Outpatient (BNVA) | payer OTHER, SELFPAY | PROVIDERS: PCP Internal Medicine; Visit Provider Hospitalist | DX: J45.40 Moderate persistent asthma, uncomplicated (principal); D80.2 Selective deficiency of immunoglobulin A [IgA]; G47.33 Obstructive sleep apnea (adult) (pediatric); Z99.89 Dependence on other enabling machines and devices; R91.8 Other nonspecific abnormal finding of lung field; G47.00 Insomnia, unspecified; F51.01 Primary insomnia; J41.1 Mucopurulent chronic bronchitis; J32.9 Chronic sinusitis, unspecified | CPT/HCPCS: 99212 ==

== ENCOUNTER 2025-06-18 12:55 | Outpatient (REF) | payer OTHER, SELFPAY ==
--- OUTSIDE RECORDS SUMMARY | 2024-04-16 09:52 | XMS_ITS | Encounter Summary ---
Author Organization [facility] Address [address] [place] [address] Care Team Providers Care Fan Mail Clerk Name Role Phone Roosevelt Jacobs MD Primary Care Provider [phone] Encounter Details Date Type Department Care Team (Late st Contact Info) Description 04/16/2024 10:52 AM EDT Hospital Encounter TH HISTORIC ENCOUNTERS EASTERN CONVERSION ONLY Cristi Campbell MD [address] [place] [phone] Social History Tobacco Use Types Packs/Day Years Used Date Smoking Tobacco: Never Smokeless Tobacco: Never Alcohol Use Standard Drinks/Week Comments No 0 (1 standard drink = 0.6 oz pur e alcohol) Comments Unknown Sex and Gender Information Value Date Recorded Sex Assigned at Not on file Legal Sex Female 8:29 AM EST Gender Identity Not on file Sexual Orientation Not on file documented as of this encounter Last Filed Vital Signs Vital Sign Reading Time Taken Comments Blood Pressure 120/54 04/16/2024 11:09 AM EDT Sitting Right arm Pulse 72 04/16/2024 11:09 AM EDT Temperature - - Respiratory Rate - - Oxygen Saturation - - Inhaled Oxygen Concentration - - Weight 68.5 kg (151 lb) 04/16/2024 11:0 9 AM EDT Height 152.4 cm (5') 04/16/2024 11:09 AM EDT Body Mass Index 29.49 04/16/2024 11:09 AM EDT documented in this encounter Progress Notes * Cristi Campbell MD - 04/16/2024 11:00 AM EDT Diagnosis/treatment: #1 Grade 2 follicular lymphoma. The patient received R-fludarabine in 2008. #2 Iron deficiency anemia. Interval history: The patient is a 69-year-old female who presented in 2007 with a mass in the right supraclavicular area. She had no fevers, chills, or sweats, but did lose 25 lbs. She was seen and evaluated by Dr. Rachel. She was referred to Dr. Pérez and on 08/16/2008 underwent an excisional biopsy of this neck node. The pathology was that of a follicular non-Hodgkins lymphoma grade 2 that was CD20-, CD10-, and BCL2-positive. CT scans of the chest, abdomen and pelvis showed bilateral axillary, periaortic, leftexternal iliac and extensive mesenteric adenopathy. In addition, there was a 1.4 cm nodule seen in the right breast possibly representing an intramammary node. She tolerated R-fludarabine without difficulty. A follow-up CT showed a very good partial response. She has had intermittent depression, anorexia, and weight loss and is followed by a psychiatrist. She has extensive arthritic pains, which have been unchanged over the last interval. She had a stable microcytic anemia in our records dating back to 2008. She has taken oral iron in the past. She reports that she had an unremarkable colonoscopy in 2005. She reported upper abdominal bloating and early satiety in early 2012. She underwent an EGD and colonoscopy in 12/2012 which were unremarkable. A hyperplastic polyp was excised from the rectum. Her symptoms resolved. A CBC on 04/26/2022 showed WBC 5.4, hemoglobin 11.9 with MCV 86, platelet count 301,000. Followup C/A/P CTs in 03/2012 showed no evidence of relapsed lymphoma. Followup C/A/P CTs in 03/2013 showed progression in right internal iliac nodes, the largest measuring 2.3 cm. A followup C/A/P CT in 06/2013 showed stable retroperitoneal and pelvic adenopathy. A followup C/A/P CT in 12/2013 showed stable retroperitoneal and pelvic adenopathy. The chest CT showed multiple bilateral pulmonary nodules, measuring up to 6 mm in the RML, all new compared to the 06/2013 CT. She underwent a wedge resection of 2 nodules on 01/10/[address] Jensen and the pathology revealed changes consistent with hypersensitivity pneumonia. She is followed by Dr. Guzmán. Follow-up C/A/P CTs in early 06/2014 showed resolution of the pulmonary nodules and the retroperitoneal and pelvic adenopathy. Mild mesenteric adenopathy was seen. Followup C/A/P CTs in mid-01/2015 showed no lymphadenopathy. A new 0.5 cm RUL nodule was seen. Followup C/A/P CTs in early 08/2015 showed no lymphadenopathy. The RUL nodule resolved. Followup C/A/P CTs in mid-08/2016 showed no lymphadenopathy. She had a viral illness in 08/2017. She had anorexia following that episode, which resolved only in the fall of 2017.. She lost weight from 169 lbs in 05/2017 to 144 lbs in 01/2018. Followup C/A/P CTs in mid-01/2018 showed no lymphadenopathy. Follow-up C/A/P CTs in late 02/2019 showed stable mild mesenteric and retroperitoneal lymphadenopathy and a new 0.8 cm left lower lobe pulmonary nodule, favored to be inflammatory. A follow-up chest CT without contrast on 07/02/2019 showed resolution of the left lower lobe nodule. Follow-up C/A/P CTs on 07/07/2020 showed no lymphadenopathy and no pulmonary nodules. Follow-up C/A/P CTs on 08/06/2021 showed no lymphadenopathy and no pulmonary nodules. She developed a cellulitis on her right forearm in mid-04/2022. I prescribed a course of doxycycline and the cellulitis resolved. She developed bronchitis in 08/2022. She completed a course of antibiotics and the symptoms resolved. A C/A/P CT with IV and oral contrast on 12/27/2022 showed a 0.2 cm right lower lobe nodule and groundglass/semisolid nodules in the right middle lobe and right lower lobe. She developed a nonproductive cough in late 11/2022. I prescribed doxycycline x10 days and the symptoms resolved. She reports dysphagia with liquids and solids starting in early 12/2022, which resolved without intervention.. A follow-up chest CT without contrast on 03/25/2023 showed stable pulmonary nodules and resolution of the resolution of the groundglass/semisolid nodules. She reports chronic mild anorexia. She lost weight from 159 pounds on 12/30/2022 down to 151 pounds on 04/06/2023. Her appetite improved without intervention in late 2022. Her weight was stable over the last interval. She denies cough or ARROYO, abdominal pain, awareness of lymphadenopathy, or B symptoms. Review of systems: The remainder of a 10 point review of systems was unremarkable. Physical examination: HEENT: Sclerae anicteric, normal oropharyngeal membrane. Neck: No lymphadenopathy. Lungs: Clear to auscultation. Heart: No murmurs. Abdomen: Soft, nontender, no organomegaly or masses. Extremities: No edema. Skin: No rash Neurologic: Normal gait. Assessment/plan: The patient is a 69 yo F who presented with a grade 2 folllicular lymphoma with widespread lymphadenopathy who attained a durable response with R-fludarabine chemotherapy x [address] in 03/2013 showed enlarged retroperitoneal and pelvic nodes. A CT in 06/2013 showed stable findings. An A/P CT in 12/2013 showed stable retroperitoneal and pelvic nodes, but new multiple pulmonarynodules. A wedge resection of 2 nodules revealed a hypersensitivity pneumonia. She is now followed by Dr. Guzmán. Follow-up C/A/P CTs in early 06/2014 showed resolution of the pulmonary nodules and the retroperitoneal and pelvic adenopathy. Mild mesenteric adenopathy was seen. Followup C/A/P CTs in mid-01/2015 showed no lymphadenopathy. A new 0.5 cm RUL nodule was seen. Follow-up C/A/P CTs in early 08/2015 showed no lymphadenopathy and resolution of the RUL nodule. Follow-up C/A/P CTs in mid-08/2016 showed no lymphadenopathy. She had a viral illness in 08/2017 and Had anorexia and weight loss following that episode. Follow-up C/A/P CTs in mid-01/2018 showed no lymphadenopathy. Follow-up C/A/P CTs in late 02/2019 showed stable mild mesenteric and retroperitoneal lymphadenopathy and a new 0.8 cm left lower lobe pulmonary nodule, favored to be inflammatory. A follow-up chest CT without contrast in late 06/2019 showed resolution of the left lower lobe nodule. Follow-up C/A/P CTs in late 06/2020 showed no lymphadenopathy and no pulmonary nodules. Follow-up C/A/P CTs in late 07/2021 showed no lymphadenopathy and no pulmonary nodules. Follow-up C/A/P CTs in mid-12/2022 showed a 0.2 cm right lower lobe nodule and groundglass/semisolidnodules in the right middle lobe and right lower lobe. She developed a nonproductive cough in late 11/2022. I prescribed doxycycline x10 days and the symptoms resolved. A follow-up chest CT in mid-03/2023 showed stable pulmonary nodules and resolution of the resolutionof the groundglass/semisolid nodules. She reports chronic mild anorexia. She lost weight from 159 pounds on 12/30/2022 down to 151 pounds on 04/06/2023. Her appetite improved without intervention in late 2022. Her weight was stable over the last interval. If there is progression in the lymphoma, we will consider R-bendamustine. documented in this encounter Plan of Treatment Upcoming Encounters Date Type Department Care Team (Late st Contact Info) Description 08/23/2025 11:30 AM EST Office Visit [facility] Hematology Oncology [address] [place] [phone] Cristi Campbell MD [address] [place] [phone] documented as of this encounter Visit Diagnoses Not on filedocumented in this encounter Care Teams Fan Mail Clerk Relationship Specialty Start Date End Date Roosevelt Jacobs MD [address] [place] [phone] PCP - General Internal Medicine 08/15/20 documented as of this encounter
--- NOTE | ~2025-06-18 | XR_ITS ---
EXAMINATION: XR CHEST CLINICAL INFORMATION: J45.40 - Moderate persistent asthma, uncomplicated COMPARISON: None available. TECHNIQUE: PA and lateral views. FINDINGS: Pulmonary reticular pattern. No hyperinflation. No consolidation, pleural effusion or pneumothorax. Cardiomediastinal silhouette size is normal. Mild multilevel thoracic spondylosis. Mild S-shaped curvature of the mid thoracic spine. Degenerative changes in the acromioclavicular joints. XR/XR chest 2V IMPRESSION: No gross pneumonia. Pulmonary reticular pattern. Superimposed acute inflammatory airway disease cannot be excluded. Electronically signed by: John Hilario MD 06/18/2025 02:05 PM [facility]
--- OUTSIDE RECORDS SUMMARY | 2025-06-18 18:56 | XMS_ITS | Clinical Summary ---
Author Organization [facility] Prior to 12/08/[address] [place] [address] Care Team Providers Care Process Coach Name Role Phone Roosevelt Jacobs MD Primary Care Provider [phone] Allergies Active Allergy Reactions Criticality Noted Date [...] day. 0 Active ergocalciferol (VITAMIN D2) capsule 02163 units Take 1 capsule (50,000 Units total) [...] Assessment 02/14/2020 Osteoporosis Screening (DEXA Scan) 02/14/2020 DTap / Tdap / Td (2 - Td or Tdap) 11/19/2024 11/19/2014 COVID-19 Vaccine ( - season) 2025 05/22/2021, 10/10/2020, 09/19/2020 Influenza Vaccine (#1) 2025 3, 06/24/2022, 05/22/2021, Additional history exists Hepatitis B Vaccines Aged Out No long er eligible based on patient's age to complete this topic RSV Ped < 20 months Aged Out No longe r eligible based on patient's age to complete this topic Care Teams Process Coach Relationship Specialty Start Date End Date Roosevelt Jacobs MD [address] [place] [phone] PCP - General Internal Medicine 04/16/21
--- OUTSIDE RECORDS SUMMARY | 2025-06-18 18:56 | XMS_ITS | Clinical Summary ---
Author Organization [facility] Address [address] [place] [address] Phone Care Team Providers Care Eligibility Analyst Name Role Phone Roosevelt Jacobs MD Primary Care Provider [phone] Allergies Active Allergy Reactions Criticality Noted Date Comments Penicillins 06/07/2018 Medications atorvastatin (LIPITOR) 10 mg tablet Take 1 tablet (10 mg total) by mouth every evening. Active beclomethasone (QNASL) 80 mcg/actuation HFA aerosol inhaler Inhale 1 puff into the lungs 2 (two) times a day. Active clonazePAM (KlonoPIN) 1 mg tablet Take 1 tablet (1 mg total) by mouth 2 (two) times a day as needed for anxiety. Active cyclobenzaprine (FLEXERIL) 10 mg tablet Take 1 tablet (10 mg total) by mouth 3 (three) times a day as needed for muscle spasms. Active docusate sodium (COLACE) 100 mg capsule Take 1 capsule (100 mg total) by mouth 2 (two) times a day. Active doxycycline (VIBRAMYCIN) 100 mg capsule Take 1 capsule (100 mg total) by mouth 2 (two) times a day. 3 Active ergocalciferol (VITAMIN D-2) 1,250 mcg (50,000 unit) capsule Take 1 capsule (50,000 Units total) by mouth once a week. Active ferrous fumarate 325 mg (106 mg iron) tablet Take by mouth. Activ e metFORMIN (GLUCOPHAGE) 500 mg tablet Take 1 tablet (500 mg total) by mouth 2 (two) times a day with meals. Active mometasone-form oterol (DULERA 200) 200-5 mcg/actuation inhaler 2 inhalations by Inhaled route every 12 (twelve) hours. Active multivitamin (MULTIPLE VITAMINS ORAL) Take by mouth daily. Active omeprazole (PriLOSEC) [address] capsule Take 1 capsule (20 mg total) by mouth daily. 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 06/08/2018 Immunizations Immunization Administration Dates Next Due Pfizer SARS-CoV-2 COVID-19, mRNA, LNP-S, preservative free 05/22/2021,10/10/2020,09/19/2020 Medical History Medical History Date Comments Asthma DX:Asthma Lymphoma ([facility] V24, [facility] V28) DX:Lymphoma ([facility]);COMMENT:Grade 2 Follicular Lymphoma Iron deficiency anemia DX:Iron d eficiency anemia Diabetes mellitus ([facility] V 24, [facility] V28) DX:Diabetes mellitus ([facility]) Family History Medical History Relation Name Comments Diabetes Mother Other: heart disease Mother Relation Name Status Comments Mother Social History Tobacco Use Types Packs/Day Years Used Date Smoking Tobacco: Never Smokeless Tobacco: Never Alcohol Use Standard Drinks/Week Comments No 0 (1 standard drink = 0.6 oz pur e alcohol) Comments Unknown Sex and Gender Information Value Date Recorded Sex Assigned at Not on file Legal Sex Female 8:29 AM EST Gender Identity Not on file Sexual Orientation Not on file Last Filed Vital Signs Vital Sign Reading Time Taken Comments Blood Pressure 145/56 02/21/2025 11:33 AM EDT Pulse 68 02/21/2025 11:33 AM EDT Temperature 36.3 C (97.4 F) 02/21/2025 11:33 AM EDT Respiratory Rate - - Oxygen Saturation 98% 02/21/2025 11:33 AM EDT Inhaled Oxygen Concentration - - Weight 67.6 kg (149 lb) 02/21/2025 11:33 AM EDT Height 152.4 cm (5') 04/16/2024 11:09 AM EDT Body Mass Index 29.1 04/16/2024 11:09 AM EDT Plan of Treatment Upcoming Encounters Date Type Department Care Team (Late st Contact Info) Description 08/23/2025 11:30 AM EST Office Visit [facility] Hematology Oncology [address] [place] [address] Cristi Campbell MD [address] [place] [address] Health Maintenance Due Date Last Done Comments Breast Cancer Screening 1955 Colorectal Cancer Screening: Colonoscopy 1955 Hepatitis A Vaccines (1 of 2 - Risk 2-dose series) 1974 Pneumococcal Vaccine: 50+ Years (1 of 2 - PCV) 1974 Zoster Vaccines (1 of 2) 1974 RSV Immunization Adult Patients (1 - Risk 50-74 years 1-dose series) 2005 Hepatitis B Vaccines (1 of 3 - Risk 3-dose series) 2015 Falls Risk Assessment 06/18/2022 Hepatitis C Screening 06/18/2022 Medicare Annual Wellness Visit 06/18/2022 Osteoporosis Screening (Bone Density Screening) 06/18/2022 Social Influencers of Health Screening 06/18/2022 Depression Screening 07/11/2024 DTaP,Tdap,and Td Vaccines (2 - Td or Tdap) 11/19/2024 11/19/2014 COVID-19 Vaccine (2024- season) 2025 05/22/2021, 10/10/2020, 09/19/2020 Influenza Vaccine (#1) 2025 , 06/24/2022, 05/22/2021, Additional history exists HIB Vaccines Aged Out No longer eligi ble based on patient's age to complete this topic HPV Vaccines Aged Out No longer eligi ble based on patient's age to complete this topic IPV Vaccines Aged Out No longer eligi ble based on patient's age to complete this topic MMR Vaccines Aged Out No longer eligi ble based on patient's age to complete this topic Meningococcal ACWY Vaccine Aged Out N o longer eligible based on patient's age to complete this topic Meningococcal B Vaccine Aged Out No l onger eligible based on patient's age to complete this topic RSV Immunization Patients Under 20 months Aged Out No longer eligible based on patient's age to complete this topic Varicella Vaccines Aged Out No longer eligible based on patient's age to complete this topic Insurance [facility] MEDICARE Member Subscriber Plan / Payer (Ef fective 2020-Present) Name:OCTAVIA MACHUCA Relation to Subscriber:Self Name:Octavia Machuca I Payer ID:[id number] Group ID:[id number] Type:Not on file Address: [place] [address] [address] [phone] Advance Directives Documents on File Type Date Recorded Patient [facility] Specialist Expl anation Health Care Decision (hx) 08/21/2014 AD GORDON DIRECTIVE Health Care Decision (hx) 08/21/2014 AD GORDON DIRECTIVE Health Care Decision (hx) 08/21/2014 AD GORDON DIRECTIVE Health Care Decision (hx) 08/21/2014 AD GORDON DIRECTIVE Health Care Decision (hx) 08/21/2014 AD GORDON DIRECTIVE Care Teams Eligibility Analyst Relationship Specialty Start Date End Date Roosevelt Jacobs MD [address] [place] [phone] PCP - General Internal Medicine 08/15/20
== END 2025-06-18 12:56 | disposition home or self-care (01) ==
LOC: HO.XRAY 12:55
PROVIDERS: PCP Internal Medicine; Visit Provider Hospitalist
DX: J45.40 Moderate persistent asthma, uncomplicated (principal); J41.1 Mucopurulent chronic bronchitis; D80.2 Selective deficiency of immunoglobulin A [IgA]; G47.33 Obstructive sleep apnea (adult) (pediatric); Z99.89 Dependence on other enabling machines and devices; K21.9 Gastro-esophageal reflux disease without esophagitis; F51.01 Primary insomnia; R91.8 Other nonspecific abnormal finding of lung field; Z79.899 Other long term (current) drug therapy
CPT/HCPCS: 71046

== ENCOUNTER 2025-06-18 12:55 | Outpatient (AMB) | payer OTHER, SELFPAY ==
[2025-06-18 12:58] VITALS: BP 130/72; PULSE 90; O2SAT 98; BMI 28.1
--- NOTE | 2025-06-18 12:58 | MHC.OFFVIS ---
Vital Signs 06/18/25 12:58 Height 5 ft 1 in Weight 148 lb 12.992 oz BMI 28.1 BP 130/72 Blood Pressure Location Lt brachial Position Sitting Pulse 90 Pulse Source Pulse Oximeter Pulse Oximetry (%) 98 Oxygen Delivery Method Room Air Intake Visit Reasons: asthma Precision Filer Hand Required: Yes Precision Filer Hand Services: Precision Filer Hand Offered & Declined Precision Filer Hand Name: MD speaks slovenian Accompanied by: Self / Same As Patient Allergies Penicillin Allergy (Severe, Uncoded 09/12/23 11:14) Dizziness HPI Comments Details: The patient is a 70-year-old woman known history of lymphoma in remission in addition to pulmonary nodules, asthma and IgA deficiancy. She did follow-up with thoracic surgery at some point at [facility] and underwent a wedge resection. The biopsy was consistent with hypersensitivity pneumonitis. Her hypersensitivity panel at the time was also abnormal. She was on respiratory inhalers and had been stable for some time. However then she stop taking the medication she was lost to follow-up. The patient started developing worsening shortness of breath and wheezing back in the winter of 2019. Positive sick contacts at home. She went to the [facility] ED where she had his flu swab and also a RSV swab that was negative. She was wondering if she could have the COVID-19 infection at the time. She had a lot of the similar symptoms. Now she has recovered she has been using Flovent Diskus inhaler with good effect. In addition to that the patient had a pulmonary nodule noted on the CAT scan February of 2019 and subsequently had a repeat CT scan of the chest in June 2019 demonstrating interval resolution of the left lower lobe nodular density which is reassuring and likely inflammatory. 08/02/2022 the patient is here for a pulmonary follow-up visit. The patient complains of some chest tightness. [id number] severity. She has not been using her maintenance inhalers. Prior she had Breo and ran out. She does not have any more medication at home. she is having difficulty with the powder inhalers anyway. Therefore I will resend Symbicort which she had in the past and she tolerated. Hopefully is covered. If not will send a different inhaled HFA combination inhaler. The patient also if worsens can start prednisone. At this point she does not need it. She is also struggling with CPAP. The [employer] called interval going to take the machine away because she has not been using it. However, they have not done so. She would like to use it. She does not know had a set up her current mask and does not uncomfortable. I did have an N30 mask available that she can try. She understands that she needs to use her machine. If the machine is taking away and she needs to go back on CPAP she is going to have to get a repeat sleep study in order to activate her again. Meantime she can see about getting used to the new mask and continue using her machine. She is also complaining of other multiple complaints including headaches. She has needs to follow-up with primary care doctor about that. She is thinking about seeing a neurologist that she has seen in the past. 11/01/2022 the patient is here for pulmonary follow-up visit. She has been having increased episodes of chest congestion and bronchitis. She did take some doxycycline recently with some improvement. However she ran out and she needs another script. 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 In addition to that she continues with her Symbicort inhaler with her response. She also has a nebulizer that she can use. She also has a CPAP machine. Unfortunately she had a hard time tolerating the machine. Therefore now she needs to return. Will go ahead and repeat the sleep study in order for her to be reactivated in order for her to continue getting supplies. She continues to complain of daytime drowsiness with EPWORTH OF 04/03. 02/07/2023 the patient is here for pulmonary follow-up visit. Since we last spoke she became sick sometime in November with worsening bronchitis symptoms. She also complained of chest tightness. She struggled for some time. She uses her nebulizer several times a day. She was started on another course of antibiotics with only partial resolution of symptoms. Ultimately she follow-up with her oncologist where she had a CT scan of the chest. It was done at [facility]. I did request a copy. It appears that she has areas of nodular ground-glass opacities measuring between 8-10 mm in size. Also evidence of bronchiolitis. This appears to be new findings. In the meantime nose no evidence of any recurrence of her blood dyscrasia. The patient felt better but then started developing substernal chest discomfort. the patient did go to the ER to have that further evaluated. no significant findings noted on that evaluation. The patient was discharged in clinically her chest discomfort has been subsiding. Currently she does not have a. She also continues to have daytime drowsiness. She has been struggling with CPAP. The CPAP therapy does help her significantly. It is affecting beneficial. Although she still having hard time with a mask fitting. I did have an F 30 I mass available. I did provide her with 1 in order for her to continue using her CPAP. In the meantime her recent home sleep study was not effective demonstrating her underlying sleep apnea. She continues to have an elevated [place] score she does need to get activated with [employer]. Therefore, I will request a in-lab sleep study at this time. The patient will return after her in-lab sleep study and also will need a CT scan of the chest in 3 months to follow up with the nodular densities measuring 8-10 mm in size. 06/10/2021 the patient is here for a pulmonary follow-up visit. She has been complaining of severe abdominal discomfort and is being evaluated for this at this time. From a respiratory status the patient continues use her medications with good effect. Denies any coughing or wheezing or chest tightness. She continues have significant daytime drowsiness. Her [place] score is elevated 10/24. She did undergo an in-lab study that we we did review. It appears that she does not have any evidence of sleep apnea this time and goes along with her home sleep study that demonstrated the same findings. Her major issue based on the studies is that she has fragmented sleep, waking up frequently during the night. Therefore, will start her on a sleep aid to try to help her with her sleep and see if we can provide better sleep hygiene. Will start the patient on gabapentin specially since he is having significant pain hopefully this also helps upsizing of the discomfort. We can also strides trazodone if she does not tolerate the gabapentin the goal will be to provide better quality sleep without the uses CPAP. If she continues to be symptomatic even after a sleep aid will can consider repeating a sleep study in future from a pulmonary nodule standpoint the patient did have imaging studies at [facility] will request the imaging at this time. 09/12/2023 the patient is here for a pulmonary follow-up visit. About a month ago she was sick with a respiratory illness resulting significant asthma. She felt like her throat was closing and had a hard time breathing. She was pretty traumatized from the experience. Moderate severity. Her cough was so persistent that she started coughing up a little bit of blood. It was mixed in with sputum. Is now clear. The patient was not evaluated for condition did not take any prescription medications. She does continue to use Symbicort inhaler with good effect. She also has a rescue inhaler. At this point in view of her significant symptoms will provide her with a nebulizer. Will request 1 from a local [employer] [facility]. In addition to that will provide her with an Acapella valve in order to provide CPT any approve her mucus clearance. She does have IgA deficiency so therefore she is at risk for recurrent infections. I will increase her azithromycin to a higher dose. In the meantime she has been sleeping without the CPAP and she has been doing well. We did talk about positional therapy to minimize risk of sleep apnea. If her symptoms persist or worsen as far as daytime drowsiness she can always call we can request a repeat sleep study. 06/14/2024 the patient is here for pulmonary follow-up visit. Since we last spoke she did go to the ED at [place]. She did have imaging studies and blood work but then she could not stay because the wait so long. Therefore she went home. Starting to feel better that she has has significant sinus pressure and postnasal drip. She also has a fullness sensation in the back of her throat. Sometimes she hurt herself trying to clear her throat. Will go ahead and have her get sinus x-rays to see. The patient will also undergo a CT scan of the chest that she is typically has with her oncologist. And she knows send me a copy of that. In the meantime because of her IgA deficiency will start her on pleural Exidine mouthwashes. She also uses a azithromycin prophylactically. Will have her see ENT for laryngoscopy. 02/18/2025 the patient is here for a pulmonary follow-up visit. Overall the patient has been doing okay. About a month ago or so she did have a bad respiratory infection. She did require antibiotics. She did not use any prednisone. The patient had been using her nebulizer regularly. She is doing better. She did not have an x-ray. Although back in June [address] scan of the chest as part of the cancer follow-up. Her CAT scan was reassuring just was postoperative changes and no recurrence. She had been on the azithromycin for prophylactic antibiotic use for IgA deficiency. But at this point she is doing better and she is off it right now. If she starts developing any respiratory complaints congestion she should restarted to avoid serious infections. She continues to have sinus pressure and cough. She will be seeing ENT next month for laryngoscopy. She will continue to keep that appointment. 06/18/2025 the patient is here for pulmonary follow-up visit. She has multiple complaints including chest discomfort shortness of breath. She has been using her respiratory medications as prescribed. She has had some difficulty swallowing. She did have evaluation with the ENT. They did order a barium swallow. I believe she missed the appointment because she was going through some changes in her home. She will be following up with them and she can get that rescheduled. In the meantime she does have recurrent respiratory infections. As she does have IgA deficiency. She should be on the azithromycin 3 times a week for antibiotic prophylaxis to avoid infections. I will make sure to send to the pharmacy. Her respiratory exam is reassuring. Although she did run out of Symbicort. I will make sure to put her back on the maintenance medication and she should have the nebulizer and rescue inhaler available for shortness of breath and as needed basis. The patient will have an x-ray to assess her chest discomfort. But appears to be more musculoskeletal. She will follow-up in 4-6 months if she has any issues prior to that she can always call further recommendations. [facility] Medical History (Updated 06/14/24 @ 20:28 by Jesse Guzmán MD) Chronic bronchitis with productive mucopurulent cough Insomnia Pulmonary nodules Bronchitis Lymphoma IgA deficiency Asthma SHAHLA on CPAP Social History Patient Tobacco Use Status: Never used Tobacco Review of Systems Const Denies daytime sleepiness, Reports headache(s), Denies night sweats and Reports snoring ENT Denies change in voice, Reports dry mouth, Reports headache(s), Denies lip swelling, Denies mouth pain, Reports nasal congestion, Reports nasal discharge, Reports sore throat and Denies tongue swelling Card Reports chest pain and Denies dyspnea on exertion Resp Denies chest congestion, Reports cough, Denies dyspnea on exertion, Reports snoring and Reports wheezing GI Denies abdominal pain Musc Denies no additional complaints Neuro Denies Neuro-related abnormal movements and Reports headache(s) Psych Denies no additional complaints Tucker/Lymph Denies easy bleeding and Denies lymphadenopathy Aller/Immun Denies lip swelling, Denies tongue swelling and Reports wheezing Physical Exam Vital Signs: Last Vital Signs Pulse 90 06/18/25 12:58 BP 130/72 06/18/25 12:58 Pulse Ox 98 06/18/25 12:58 Oxygen Delivery Method Room Air 06/18/25 12:58 BMI result Body Mass Index 28.1 Const General: alert Neck Neck: Yes normal visual inspection, Yes full ROM and Yes no lymphadenopathy Chest Chest palpation & inspection: normal inspection of the chest Resp Auscultation: no wheezes and diminished lung sounds Cardio Rate: regular rate Rhythm: regular rhythm Heart sounds: S1 normal heart sound present, S2 normal heart sound present and Murmur heart sound present GI Palpation (GI): Soft to palpation and nontender Auscultation: normal bowel sounds Skin General skin exam: rashes and/or lesions noted Extrem General: Yes no clubbing, cyanosis or edema Office Procedures Flu Questionnaire Does the patient have a severe egg allergy?: No Does the patient have severe life threatening allergies?: No Does the patient have a fever or illness today?: No Has the patient ever had Guillain-Maxwell Syndrome?: No Has the patient ever had any past reaction to a flu shot?: No Immunizations Fluarix [id number] (PF) 45 mcg (15 mcg x 3)/0.5 mL IM syringe Performing Provider: Jesse Guzmán MD Performing Location: [facility] Administered by: Claire Mueller LPN on 06/18/25 13:30 Dose Route Admin Location Dispensed Lot Number Expiration Date NDC Inspector Rubber Stamp Die 0.5 mL IM Right Deltoid 0.5 mL [id number] 01/07/26 [id number] Kymeta VIS Given Date VIS Provided VIS Publication Date 06/18/25 Single Vaccine 24 Eligibility Eligibility Date Funding Source Not [facility] Eligible 06/18/25 Private Assessment & Plan Assessment & Plan (1) Asthma: Code(s): J45.909 - Unspecified asthma, uncomplicated Category: Medical Qualifiers: Asthma complication type: uncomplicated Asthma persistence: persistent Asthma severity: moderate Qualified Code(s): J45.40 - Moderate persistent asthma, uncomplicated (2) IgA deficiency: Code(s): D80.2 - Selective deficiency of immunoglobulin A [IgA] Category: Medical (3) SHAHLA on CPAP: Comment: no sleep apnea on her recent in lab PSG Code(s): G47.33 - Obstructive sleep apnea (adult) (pediatric); Z99.89 - Dependence on other enabling machines and devices Category: Medical (4) Pulmonary nodules: Code(s): R91.8 - Other nonspecific abnormal finding of lung field Category: Medical (5) Insomnia: Code(s): G47.00 - Insomnia, unspecified Category: Medical Qualifiers: Insomnia type: primary Qualified Code(s): F51.01 - Primary insomnia (6) Chronic bronchitis with productive mucopurulent cough: Code(s): J41.1 - Mucopurulent chronic bronchitis Category: Medical Plan decrease Gabapentin 200mg QHS continue Symbicort short-acting beta agonist as needed nebulizer therapy for albuterol acapella valve ENT start Azithromycin MWF CXR F/U 3-4 months Orders: Orders XR chest 2V Today J45.40 - Moderate persistent asthma, uncomplicated Influenza [id number] Immunization Today J45.40 - Moderate persistent asthma, uncomplicated Medications: New azithromycin Take 1 tablet on Tuesday/Tuesday/Tuesday 250 mg PO 3XW 12 tabs 1RF 28 days K21.9 - Gastro-esophageal reflux disease without esophagitis gabapentin 200 mg (2 x 100 mg) PO BEDTIME 60 caps 5RF 30 days Refilled Symbicort 160-4.5 mcg/actuation (budesonide-formoterol) 2 puffs PO BID 10.2 grams 11RF NS albuterol sulfate 2.5 mg (3 mL) inhalation BID 180 mL 11RF 30 days J41.1 - Mucopurulent chronic bronchitis Coding Level of Care Code Complex visit Add On G2211 Diagnoses Moderate persistent asthma without complication J45.40 Asthma complication type: uncomplicated Asthma persistence: persistent Asthma severity: moderate IgA deficiency D80.2 SHAHLA on CPAP G47.33; Z99.89 Pulmonary nodules R91.8 Primary insomnia F51.01 Insomnia type: primary Chronic bronchitis with productive mucopurulent cough J41.1 Time Spent (min) 17
== END 2025-06-18 13:23 | disposition home or self-care (01) ==
LOC: HO.HPS 12:56
PROVIDERS: PCP Internal Medicine; Visit Provider Hospitalist
DX: J45.40 Moderate persistent asthma, uncomplicated (principal); D80.2 Selective deficiency of immunoglobulin A [IgA]; G47.33 Obstructive sleep apnea (adult) (pediatric); Z99.89 Dependence on other enabling machines and devices; R91.8 Other nonspecific abnormal finding of lung field; F51.01 Primary insomnia; J41.1 Mucopurulent chronic bronchitis
CPT/HCPCS: 99214; G2211

== ENCOUNTER → 2025-06-18 13:39 | Outpatient (BNV) | payer OTHER, SELFPAY | PROVIDERS: PCP Internal Medicine; Visit Provider Radiology Diagnostic Radiology | DX: J45.40 Moderate persistent asthma, uncomplicated (principal) | CPT/HCPCS: 71046 ==